=== PATIENT | male | born 1965 | race Caucasian/White ===

== ENCOUNTER 2016-12-06 11:08 | Inpatient (IN) | payer OTHER ==
[2016-12-06 12:58] VITALS: BMI 23.1
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
[2016-12-06] MEDS ORDERED: chlordiazePOXIDE HCL 25 MG CAPSULE PO PRN (15:13)
[2016-12-06] MEDS ORDERED: MAG HYDROX/AL HYDROX/SIMETH 30 ML UNIT-DOSE CUP PO PRN (15:13)
[2016-12-06] MEDS ORDERED: ACETAMINOPHEN 325 MG TABLET (FP) PO PRN (15:13)
[2016-12-06] MEDS ORDERED: MAGNESIUM CITRATE 300 ML BOTTLE PO PRN (15:13)
[2016-12-06] MEDS ORDERED: guaiFENesin/D-METHORPHAN HB 10 ML UNIT-DOSE CUPS PO PRN (15:13)
[2016-12-06] MEDS ORDERED: NICOTINE POLACRILEX 4 MG GUM BUC PRN (15:13)
[2016-12-06] MEDS ORDERED: IBUPROFEN 400 MG TABLET (FP) PO PRN (15:13)
[2016-12-06] MEDS ORDERED: P-EPHED 60MG/TRIPROLIDI 2.5MG TABLET PO PRN (15:13)
[2016-12-06] MEDS ORDERED: MENTHOL/PHENOL 1 EACH UD MM PRN (15:13)
[2016-12-06] MEDS ORDERED: MAGNESIUM HYDROX 2400MG/30ML ORAL SUSPENSION 30 ML CUP PO PRN (15:13)
[2016-12-06] MEDS ORDERED: LOPERAMIDE HCL 2 MG CAPSULE PO PRN (15:13)
[2016-12-06] MEDS ORDERED: diphenhydrAMINE HCL 50 MG CAPSULE PO PRN (15:13)
[2016-12-06] MEDS ORDERED: hydrOXYzine PAMOATE 50 MG CAPSULE (FP) PO PRN (15:13)
[2016-12-06] MEDS ORDERED: ALBUTEROL SO4 6.7 GM HFA INHALER IH PRN (15:16)
[2016-12-06] MEDS ORDERED: chlordiazePOXIDE HCL 25 MG CAPSULE PO ONE (15:19)
[2016-12-06] MEDS ORDERED: METHADONE HCL 10 MG TABLET (FOR DETOX USE ONLY) PO ONE ×2 (15:21→23:00)
[2016-12-06] MEDS: chlordiazePOXIDE HCL 25 MG CAPSULE PO SCH ×2 (17:23→22:43)
[2016-12-06 20:39] LABS: URINE APPEARANCE CLEAR; URINE BILIRUBIN NEGATIVE (NEGATIVE); URINE BLOOD NEGATIVE (NEGATIVE); URINE COLOR YELLOW; URINE GLUCOSE (UA) NEGATIVE (NEGATIVE); URINE KETONE TRACE (NEGATIVE); URINE LEUK ESTERASE NEGATIVE (NEGATIVE); URINE NITRITE NEGATIVE (NEGATIVE); URINE PROTEIN NEGATIVE (NEGATIVE); URINE UROBILINOGEN 2.0 E.U/dl E.U./dl (0.2-1.0)
[2016-12-06] MEDS: THIAMINE HCL 100 MG TABLET (FP) PO SCH (22:43)
[2016-12-07] MEDS: chlordiazePOXIDE HCL 25 MG CAPSULE PO SCH ×2 (06:23→10:53)
[2016-12-07] MEDS ORDERED: METHADONE HCL 10 MG TABLET (FOR DETOX USE ONLY) PO SCH (10:00)
[2016-12-07 10:25] LABS: MCH 29.1 pg (25.7-33.7); MCHC 32.3 g/dl (32.0-35.9); MEAN PLT VOLUME 11.9 fl (7.5-11.1); PLATELET COUNT 117 K/MM3 (134-434); RDW 14.1 % (11.9-15.9); WHITE BLOOD COUNT 5.9 K/mm3 (4.0-10.0)
--- NOTE | 2016-12-07 10:44 | PN ---
[facility] CIWA - CIWA Score Nausea/Vomitin Muscle Tremors: 3 Anxiety: 3 Agitation: 2 Paroxysmal Sweats: 1-Minimal Palms Moist Orientation: 0-Oriented Tacttile Disturbances: 1-Very Mild Itch/Numbness Auditory Disturbances: 1-Very Mild Visual Disturbances: 1-Very Mild Sensitivity Headache: 2-Mild CIWA-Ar Total Score: 17 [facility] COWS - Scale Resting Pulse: 0= [place] 80 or Below Sweatin= Chills/Flushing Restless Observation: 3= Extraneous Movement Pupil Size: 1= Pupils >than Normal Bone or Joint Aches: 2= Severe Diffuse Aches Runny Nose/ Eye Tearin= Runny Nose/Eyes GI Upset > 30mins: 3= Vomiting/Diarrhea Tremor Observation of Outstretched Hands: 2= Slight Tremor Visible Yawning Observation: 1= 1-2x During Session Anxiety or Irritability: 2=Irritable/Anxious Goose Flesh Skin: 0=Smooth Skin COWS Score: 17 [facility] Progress Note (SOAP) Subjective: ALERT,IRRITABLE,ANXIOUS,INTERRUPTED SLEEP,PAIN IN THE BODY AND BACK Objective: 12/07/16 10:41 Vital Signs Temperature 98.1 F 12/07/16 09:40 Pulse Rate 67 12/07/16 09:40 Respiratory Rate 16 12/07/16 09:40 Blood Pressure 109/71 12/07/16 09:40 O2 Sat by Pulse Oximetry (%) EKG SINUS TACHYCARDIA 112/MIN NO CHEST PAIN,NO SOB,NO DIZZINESS Laboratory Last Values WBC 5.9 K/mm3 (4.0-10.0) 12/07/16 06:00 RBC 4.74 M/mm3 (4.00-5.60) 12/07/16 06:00 Hgb 13.8 GM/dL (11.7-16.9) 12/07/16 06:00 Hct 42.7 % (35.4-49) 12/07/16 06:00 MCV 90.0 fl (80-96) 12/07/16 06:00 MCHC 32.3 g/dl (32.0-35.9) 12/07/16 06:00 RDW 14.1 % (11.9-15.9) 12/07/16 06:00 Plt Count 117 K/MM3 (134-434) L 12/07/16 06:00 MPV 11.9 fl (7.5-11.1) H D 12/07/16 06:00 Urine Color Yellow 12/06/16 20:07 Urine Appearance Clear 12/06/16 20:07 Urine pH 6.0 (5.0-8.0) 12/06/16 20:07 Ur Specific [place] 1.025 (1.005-1.025) 12/06/16 20:07 Urine Protein Negative (NEGATIVE) 12/06/16 20:07 Urine Glucose (UA) Negative (NEGATIVE) 12/06/16 20:07 Urine Ketones Trace (NEGATIVE) H 12/06/16 20:07 Urine Blood Negative (NEGATIVE) 12/06/16 20:07 Urine Nitrite Negative (NEGATIVE) 12/06/16 20:07 Urine Bilirubin Negative (NEGATIVE) 12/06/16 20:07 Urine Urobilinogen 2.0 e.u/dl E.U./dl (0.2-1.0) 12/06/16 20:07 Ur Leukocyte Esterase Negative (NEGATIVE) 12/06/16 20:07 LABS PENDING 12/07/16 10:44 Assessment: 12/07/16 10:43 WITHDRAWAL SYMPTOM 12/07/16 10:44 NO CHEST PAIN,NO SOB,NO DIZZINESS Plan: CONTINUE DETOX
[2016-12-07 10:53] LABS: ALBUMIN 4.2 g/dl (3.4-5.0); ALK PHOS 96 U/L (45-117); ANION GAP 10 (8-16); BILIRUBIN,TOTAL 0.6 mg/dL (0.2-1.0); CALCIUM 8.9 mg/dL (8.5-10.1); CO2 31 mmol/L (21-32); COCKROFT - GAULT 94.61; CREATININE 0.8 mg/dL (0.7-1.3); GLUCOSE,RANDOM 88 mg/dL (74-106); SGOT/AST 32 U/L (15-37); SGPT/ALT 27 U/L (12-78); TOT PROT 7.9 g/dl (6.4-8.2)
[2016-12-07] MEDS: PRENATAL VITAMINS W/ FOLIC ACID TABLET (FP) PO SCH (10:53)
[2016-12-07] MEDS: NICOTINE 21 MG/24 HOURS TOPICAL PATCH TD SCH (10:55)
--- NOTE | 2016-12-07 11:06 | PN ---
[facility] Progress Note Note: ADDENDUM EKG SHOWED NSR
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
[2016-12-07] MEDS ORDERED: diazePAM 5 MG TABLET PO ONE (15:21)
[2016-12-07] MEDS ORDERED: BACITRACIN 0.9 GM PACKET ONE (15:33)
[2016-12-07] MEDS ORDERED: chlordiazePOXIDE HCL 25 MG CAPSULE PO SCH (17:00)
--- NOTE | 2016-12-07 17:21 | EKG ---
Test Reason : Blood Pressure : / mmHG Vent. Rate : 083 BPM Atrial Rate : 083 BPM P-R Int : 142 ms QRS Dur : 092 ms QT Int : 358 ms P-R-T Axes : 077 095 064 degrees QTc Int : 420 ms NORMAL SINUS RHYTHM RIGHTWARD AXIS BORDERLINE ECG NO PREVIOUS ECGS AVAILABLE Confirmed by NELLY ORDONEZ, GEORGES ([id number]) on 12/07/2016 5:20:54 PM Referred By: Confirmed By:GEORGES VILLEGAS MD
[2016-12-07] MEDS: CEPHALEXIN MONOHYDRATE 500 MG CAPSULE (UD) PO SCH ×2 (17:30→23:04)
--- NOTE | 2016-12-07 17:43 | CONSULT ---
[facility] Psychiatric Consult - Data Date of interview: 12/07/16 Admission source: [facility] Identifying data: Readmission to [facility] for this 51 y/o male seeking detox treatment on for alcohol,heroin and cocaine dependence.Patient is single,a father of three,homeless,unemployed and reportedly deprived of any source of income. Substance Abuse History: - Smoking Cessation. Smoking history: Current every day smoker. Have you smoked in the past 12 months: Yes. Aproximately how many cigarettes per day: 20. Cigars Per Day: 0. Hx Chewing Tobacco Use: No. Initiated information on smoking cessation: Yes. 'Breaking Loose' booklet given : 12/06/16. - Substance & Tx. History. Hx Alcohol Use: Yes. Hx Substance Use : Yes. Substance Use Type: Alcohol, Cocaine, Heroin. Hx Substance Use Treatment: Yes. - Substances Abused. Heroin. Route: Injection. Frequency : Daily. Amount used: 8 bags. Age of first use: 18. Date of Last Use: . Cocaine. Route: Injection. Frequency: 1-2 times per week. Amount used : $100. Age of first use: 18. Date of Last Use: 12/05/16. Alcohol-vodka/ beer. Route: Oral. Frequency: Daily. Amount used: 2-3 pts./2 (14 oz.). Age of first use: 14. Date of Last Use: 12/06/16. Confirmed by patient. Medical History: Hepatitis C,bronchial asthma and a remote history of withdrawal seizure.Cyst in the occipital region. Psychiatric History: Patient admits to one psychiatric hospitalization at [facility] in 1989.Diagnosed with Bipolar Disorder.Used to be followed at [facility] in the [place].Lost to follow up for several months.Not on psychotropic medications.Mr Zuleta denies history of suicide attempts. Physical/Sexual Abuse/Trauma History: Patient denies. Additional Comment: Urine Drug Screen Results: CHARLES-Cocaine, OPI-Opiates, BZO- Benzodiazepines, OXY-Oxycodone.Noted. Mental Status Exam - Mental Status Exam Alert and Oriented to: Time, Place, Person Cognitive Function: Good Patient Appearance: Well Groomed Mood: Hopeful, Euthymic Affect: Appropriate, Normal Range Patient Behavior: Fatigued, Appropriate, Cooperative Speech Pattern: Clear, Appropriate Voice Loudness: Normal Thought Process: Goal Oriented Thought Disorder: Not Present Hallucinations: Denies Suicidal Ideation: Denies Homicidal Ideation: Denies Insight/Judgement: Poor Sleep: Well Appetite: Good Muscle strength/Tone: Normal Gait/Station: Normal Psychiatric Findings - Problem List ([place] 1, 2,3) (1) Alcohol dependence with uncomplicated withdrawal Current Visit: Yes Status: Acute (2) Opioid dependence with withdrawal Current Visit: Yes Status: Acute (3) Cocaine dependence Current Visit: Yes Status: Acute (4) Nicotine dependence Current Visit: Yes Status: Acute Qualifiers: Nicotine product type: cigarettes Substance use status: in withdrawal Qualified Code(s): F17.213 - Nicotine dependence, cigarettes, with withdrawal (5) Substance induced mood disorder Current Visit: Yes Status: Acute (6) COPD (chronic obstructive pulmonary disease) Current Visit: Yes Status: Chronic Qualifiers: COPD type: emphysema Emphysema type: other Qualified Code(s): J43.8 - Other emphysema (7) Asthma Current Visit: Yes Status: Chronic - Initial Treatment Plan Initial Treatment Plan: Psychoeducation.Detoxification.Observation.
[2016-12-07] MEDS: THIAMINE HCL 100 MG TABLET (FP) PO SCH (22:55)
[2016-12-07] MEDS: diazePAM 5 MG TABLET PO SCH (22:56)
[2016-12-07] MEDS: BACITRACIN 0.9 GM PACKET TP SCH ×2 (22:57→23:12)
[2016-12-08] MEDS: CEPHALEXIN MONOHYDRATE 500 MG CAPSULE (UD) PO SCH ×4 (05:18→23:48)
[2016-12-08] MEDS: diazePAM 5 MG TABLET PO SCH ×3 (05:18→22:23)
[2016-12-08] MEDS: BACITRACIN 0.9 GM PACKET TP SCH ×2 (10:20→23:28)
[2016-12-08] MEDS: PRENATAL VITAMINS W/ FOLIC ACID TABLET (FP) PO SCH (10:21)
[2016-12-08] MEDS: NICOTINE 21 MG/24 HOURS TOPICAL PATCH TD SCH (10:21)
[2016-12-08] MEDS: METHADONE HCL 5 MG TABLET (FOR DETOX USE ONLY) PO SCH (10:21)
--- NOTE | 2016-12-08 10:56 | PN ---
[facility] CIWA - CIWA Score Nausea/Vomitin-No Nausea/No Vomiting Muscle Tremors: 4-Moderate,w/Arms Extend Anxiety: 3 Agitation: 4-Moderately Restless Paroxysmal Sweats: 3 Orientation: 0-Oriented Tacttile Disturbances: 0-None Auditory Disturbances: 0-None Visual Disturbances: 0-None Headache: 1-Very Mild CIWA-Ar Total Score: 15 [facility] COWS - Scale Resting Pulse: 0= [place] 80 or Below Sweatin=Flushed/Facial Moisture Restless Observation: 1= Difficult to Sit Still Pupil Size: 0= Normal to Room Light Bone or Joint Aches: 2= Severe Diffuse Aches Runny Nose/ Eye Tearin= Runny Nose/Eyes GI Upset > 30mins: 1= Stomach Cramp Tremor Observation of Outstretched Hands: 2= Slight Tremor Visible Yawning Observation: 2= >3x During Session Anxiety or Irritability: 2=Irritable/Anxious Goose Flesh Skin: 0=Smooth Skin COWS Score: 14 S Progress Note (SOAP) Subjective: sweats shakes interrupted sleep some drainage Objective: 12/08/16 10:53 Vital Signs Temperature 98.1 F 12/08/16 09:37 Pulse Rate 74 12/08/16 09:37 Respiratory Rate 16 12/08/16 09:37 Blood Pressure 102/59 12/08/16 09:37 O2 Sat by Pulse Oximetry (%) Laboratory Tests 12/06/16 12/07/16 12/07/16 20:07 06:00 06:00 WBC 5.9 RBC 4.74 Hgb 13.8 Hct 42.7 MCV 90.0 MCHC 32.3 RDW 14.1 Plt Count 117 L MPV 11.9 H D Sodium 140 Potassium 4.9 Chloride 99 Carbon Dioxide 31 Anion Gap 10 BUN 9 Creatinine 0.8 Creat Clearance w eGFR > 60 Random Glucose 88 Calcium 8.9 Total Bilirubin 0.6 AST 32 D ALT 27 D Alkaline Phosphatase 96 Total Protein 7.9 Albumin 4.2 Urine Color Yellow Urine Appearance Clear Urine pH 6.0 Ur Specific [place] 1.025 Urine Protein Negative Urine Glucose (UA) Negative Urine Ketones Trace H Urine Blood Negative Urine Nitrite Negative Urine Bilirubin Negative Urine Urobilinogen 2.0 e.u/dl Ur Leukocyte Esterase Negative RPR Titer 12/07/16 06:00 WBC RBC Hgb Hct MCV MCHC RDW Plt Count MPV Sodium Potassium Chloride Carbon Dioxide Anion Gap BUN Creatinine Creat Clearance w eGFR Random Glucose Calcium Total Bilirubin AST ALT Alkaline Phosphatase Total Protein Albumin Urine Color Urine Appearance Urine pH Ur Specific [place] Urine Protein Urine Glucose (UA) Urine Ketones Urine Blood Urine Nitrite Urine Bilirubin Urine Urobilinogen Ur Leukocyte Esterase RPR Titer Nonreactive awake/alert ambulating no acute distress Assessment: 12/08/16 10:54 withdrawal sx Plan: continue detox increase fluids
[2016-12-08] MEDS ORDERED: chlordiazePOXIDE 5 MG CAPSULE PO SCH (17:00)
[2016-12-08] MEDS: diazePAM 5 MG TABLET PO PRN (17:54)
[2016-12-08] MEDS: THIAMINE HCL 100 MG TABLET (FP) PO SCH (22:23)
[2016-12-09] MEDS: CEPHALEXIN MONOHYDRATE 500 MG CAPSULE (UD) PO SCH ×4 (07:31→23:04)
[2016-12-09] MEDS: BACITRACIN 0.9 GM PACKET TP SCH ×2 (10:31→23:02)
[2016-12-09] MEDS: METHADONE HCL 5 MG TABLET (FOR DETOX USE ONLY) PO SCH (10:32)
[2016-12-09] MEDS: NICOTINE 21 MG/24 HOURS TOPICAL PATCH TD SCH (10:32)
[2016-12-09] MEDS: diazePAM 5 MG TABLET PO SCH ×2 (10:32→22:41)
[2016-12-09] MEDS: PRENATAL VITAMINS W/ FOLIC ACID TABLET (FP) PO SCH (10:32)
--- NOTE | 2016-12-09 10:37 | PN ---
[facility] Progress Note (SOAP) Subjective: ALERT,IRRITABLE,ANXIOUS,INTERRUPTED SLEEP,PAIN IN THE BODY Objective: 12/09/16 10:36 Vital Signs Temperature 98.1 F 12/09/16 09:22 Pulse Rate 63 12/09/16 09:22 Respiratory Rate 16 12/09/16 09:22 Blood Pressure 98/60 12/09/16 09:22 O2 Sat by Pulse Oximetry (%) Assessment: 12/09/16 10:36 WITHDRAWAL SYMPTOM Plan: CONTINUE DETOX
[2016-12-09] MEDS: diazePAM 5 MG TABLET PO PRN ×2 (12:27→17:16)
[2016-12-09] MEDS ORDERED: chlordiazePOXIDE HCL 10 MG CAPSULE PO SCH (17:00)
[2016-12-09] MEDS: THIAMINE HCL 100 MG TABLET (FP) PO SCH (22:41)
[2016-12-10] MEDS: CEPHALEXIN MONOHYDRATE 500 MG CAPSULE (UD) PO SCH ×2 (05:37→13:00)
--- NOTE | 2016-12-10 09:01 | PN ---
S Progress Note (SOAP) Subjective: ALERT,INTERRUPTED SLEEP Objective: 12/10/16 08:57 Vital Signs Temperature 97.7 F 12/10/16 06:00 Pulse Rate 56 L 12/10/16 06:00 Respiratory Rate 18 12/10/16 06:00 Blood Pressure 90/61 12/10/16 06:00 O2 Sat by Pulse Oximetry (%) Assessment: 12/10/16 08:57 WITHDRAWAL SYMPTOM Plan: CONTINUE DETOX,DISCHARGE IN AM
[2016-12-10] MEDS ORDERED: METHADONE HCL 10 MG TABLET (FOR DETOX USE ONLY) PO SCH (10:00)
[2016-12-10] MEDS: BACITRACIN 0.9 GM PACKET TP SCH (10:05)
[2016-12-10] MEDS: PRENATAL VITAMINS W/ FOLIC ACID TABLET (FP) PO SCH (10:05)
[2016-12-10] MEDS: NICOTINE 21 MG/24 HOURS TOPICAL PATCH TD SCH (10:06)
[2016-12-10] MEDS: diazePAM 5 MG TABLET PO SCH (10:06)
[2016-12-10] MEDS: diazePAM 5 MG TABLET PO PRN (13:38)
[2016-12-10 14:30] VITALS: BP 108/67; PULSE 65; TEMP 97.7
--- NOTE | 2016-12-10 16:49 | DS ---
[facility] Detox Discharge Summary Admission Date: 12/06/16 Discharge Date: 12/10/16 - History Present History: Alcohol Dependence, Cocaine Dependence, Opioid Dependence - Physical Exam Results Vital Signs: Vital Signs Temperature 97.7 F 12/10/16 14:30 Pulse Rate 65 12/10/16 14:30 Respiratory Rate 16 12/10/16 14:30 Blood Pressure 108/67 12/10/16 14:30 O2 Sat by Pulse Oximetry (%) - Medication Discharge Medications: Ambulatory Orders Albuterol Sulfate Inhaler - [Ventolin HFA Inhaler -] 2 inh IH Q4H PRN #0 inh Salmeterol/Fluticasone [Advair 250Mcg/50Mcg] 1 inh PO BID 12/06/16 - Diagnosis (1) Cocaine dependence Current Visit: Yes Status: Chronic (2) Alcohol dependence with uncomplicated withdrawal Current Visit: Yes Status: Chronic (3) Nicotine dependence Current Visit: Yes Status: Chronic Qualifiers: Nicotine product type: cigarettes Substance use status: uncomplicated Qualified Code(s): F17.210 - Nicotine dependence, cigarettes, uncomplicated (4) Opioid dependence with withdrawal Current Visit: Yes Status: Chronic (5) Weight loss Current Visit: Yes Status: Chronic (6) Asthma Current Visit: Yes Status: Chronic - AMA Did Patient Leave Against Medical Advice: Yes
[2016-12-11] MEDS ORDERED: METHADONE HCL 5 MG TABLET (FOR DETOX USE ONLY) PO SCH (06:00)
[2016-12-11] MEDS ORDERED: diazePAM 5 MG TABLET PO SCH (10:00)
== END 2016-12-10 16:50 | disposition left against medical advice (07) | DRG 770 ==
LOC: YASAS 11:08 → Y6N 15:15
PROVIDERS: ADMIT Internal Medicine Addiction Medicine; ATTEND Internal Medicine Addiction Medicine
PROC: HZ2ZZZZ Detoxification Services for Substance Abuse Treatment (ICD-10-PCS; principal; 2016-12-10)
DX: F11.23 Opioid dependence with withdrawal (principal); F10.230 Alcohol dependence with withdrawal, uncomplicated; F14.20 Cocaine dependence, uncomplicated; F17.210 Nicotine dependence, cigarettes, uncomplicated; F19.24 Other psychoactive substance dependence with psychoactive substance-induced mood disorder; J45.909 Unspecified asthma, uncomplicated; J43.8 Other emphysema; R63.4 Abnormal weight loss; Z68.22 Body mass index [BMI] 22.0-22.9, adult; Z59.0 Homelessness
CPT/HCPCS: 36415; 80053; 81003; 85027; 86593; 93005; 93010

== ENCOUNTER 2017-01-12 12:56 | Inpatient (IN) | payer OTHER ==
[2017-01-12 15:03] VITALS: BMI 22.8
[2017-01-12] MEDS ORDERED: MAGNESIUM CITRATE 300 ML BOTTLE PO PRN (19:10)
[2017-01-12] MEDS ORDERED: LOPERAMIDE HCL 2 MG CAPSULE PO PRN (19:10)
[2017-01-12] MEDS ORDERED: MAG HYDROX/AL HYDROX/SIMETH 30 ML UNIT-DOSE CUP PO PRN (19:10)
[2017-01-12] MEDS ORDERED: NICOTINE POLACRILEX 4 MG GUM BC PRN (19:10)
[2017-01-12] MEDS ORDERED: diphenhydrAMINE HCL 50 MG CAPSULE PO PRN (19:10)
[2017-01-12] MEDS ORDERED: guaiFENesin/D-METHORPHAN HB 10 ML UNIT-DOSE CUPS PO PRN (19:10)
[2017-01-12] MEDS ORDERED: P-EPHED 60MG/TRIPROLIDI 2.5MG TABLET PO PRN (19:10)
[2017-01-12] MEDS ORDERED: MENTHOL/PHENOL 1 EACH UD MM PRN (19:10)
[2017-01-12] MEDS ORDERED: MAGNESIUM HYDROX 2400MG/30ML ORAL SUSPENSION 30 ML CUP PO PRN (19:10)
[2017-01-12] MEDS ORDERED: METHADONE HCL 10 MG TABLET (FOR DETOX USE ONLY) PO ONE ×2 (19:10→23:00)
[2017-01-12] MEDS ORDERED: ACETAMINOPHEN 325 MG TABLET (FP) PO PRN (19:10)
[2017-01-12] MEDS ORDERED: diazePAM 5 MG TABLET PO ONE (19:10)
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
[2017-01-12] MEDS ORDERED: ALBUTEROL SO4 6.7 GM HFA INHALER IH PRN (19:13)
[2017-01-12] MEDS ORDERED: BACITRACIN 0.9 GM PACKET TP ONE (19:16)
[2017-01-12] MEDS: RANITIDINE HCL 150 MG TABLET (FP) PO SCH (22:38)
[2017-01-12] MEDS: diazePAM 5 MG TABLET PO SCH (22:38)
[2017-01-12] MEDS: BUDESONIDE/FORMETEROL FUMARATE 80/4.5 mcg INHALER IH SCH (22:38)
[2017-01-12] MEDS: THIAMINE HCL 100 MG TABLET (FP) PO SCH (22:38)
[2017-01-13 02:37] LABS: URINE APPEARANCE TURBID; URINE BILIRUBIN NEGATIVE (NEGATIVE); URINE BLOOD NEGATIVE (NEGATIVE); URINE COLOR YELLOW; URINE GLUCOSE (UA) NEGATIVE (NEGATIVE); URINE KETONE NEGATIVE (NEGATIVE); URINE LEUK ESTERASE NEGATIVE (NEGATIVE); URINE NITRITE NEGATIVE (NEGATIVE); URINE UROBILINOGEN 2.0 E.U/dl E.U./dl (0.2-1.0)
[2017-01-13 02:40] LABS: URINE PROTEIN 1+ (NEGATIVE)
[2017-01-13 02:49] LABS: URINE BACTERIA FEW /hpf (NONE SEEN); URINE HYALINE CAST 7 /lpf; URINE MUCUS MANY; URINE RBC 3 /hpf (0-3)
[2017-01-13] MEDS: diazePAM 5 MG TABLET PO SCH ×3 (05:43→22:42)
[2017-01-13] MEDS ORDERED: METHADONE HCL 10 MG TABLET (FOR DETOX USE ONLY) PO SCH (10:00)
[2017-01-13 10:12] LABS: MCHC 32.7 g/dl (32.0-35.9); MEAN CELL VOLUME 88.7 fl (80-96); MEAN PLT VOLUME 10.1 fl (7.5-11.1); PLATELET COUNT 114 K/MM3 (134-434); WHITE BLOOD COUNT 4.3 K/mm3 (4.0-10.0)
[2017-01-13] MEDS: BUDESONIDE/FORMETEROL FUMARATE 80/4.5 mcg INHALER IH SCH ×2 (10:45→22:42)
[2017-01-13] MEDS: PRENATAL VITAMINS W/ FOLIC ACID TABLET (FP) PO SCH (10:45)
[2017-01-13] MEDS: RANITIDINE HCL 150 MG TABLET (FP) PO SCH ×2 (10:45→22:42)
[2017-01-13] MEDS: NICOTINE 21 MG/24 HOURS TOPICAL PATCH TD SCH (10:45)
[2017-01-13 10:46] LABS: ALBUMIN 3.6 g/dl (3.4-5.0); ANION GAP 8 (8-16); BILIRUBIN,TOTAL 0.7 mg/dL (0.2-1.0); CALCIUM 9.2 mg/dL (8.5-10.1); CO2 32 mmol/L (21-32); CREATININE 0.8 mg/dL (0.7-1.3); GLUCOSE,RANDOM 83 mg/dL (74-106); SGOT/AST 47 U/L (15-37); SGPT/ALT 38 U/L (12-78)
[2017-01-13 10:47] LABS: ALK PHOS 84 U/L (45-117)
[2017-01-13] MEDS ORDERED: ONDANSETRON *ODT* 4 MG TABLET SL PRN (13:23)
--- NOTE | 2017-01-13 13:23 | PN ---
[facility] CIWA - CIWA Score Nausea/Vomitin-No Nausea/No Vomiting Muscle Tremors: 4-Moderate,w/Arms Extend Anxiety: 4-Mod. Anxious/Guarded Agitation: 4-Moderately Restless Paroxysmal Sweats: 1-Minimal Palms Moist Orientation: 0-Oriented Tacttile Disturbances: 3-Moderate Itch/Numb/Burn Auditory Disturbances: 3-Moderate Harsh/Frighten Visual Disturbances: 0-None Headache: 0-None Present CIWA-Ar Total Score: 19 S COWS - Scale Resting Pulse: 0= [place] 80 or Below Sweatin= Chills/Flushing Restless Observation: 3= Extraneous Movement Pupil Size: 2= Moderately Dilated Bone or Joint Aches: 4=Acute Joint/Muscle Pain Runny Nose/ Eye Tearin= Nasal Congestion GI Upset > 30mins: 1= Stomach Cramp Tremor Observation of Outstretched Hands: 1= Tremor [place], Not Seen Yawning Observation: 1= 1-2x During Session Anxiety or Irritability: 2=Irritable/Anxious Goose Flesh Skin: 0=Smooth Skin COWS Score: 16 S Progress Note (SOAP) Subjective: ANXIETY,SWEATS/CHILLS,NAUSEA, FATIGUE,INTERMITTENT SLEEP. Objective: 01/13/17 13:22 Vital Signs Temperature 96.7 F L 01/13/17 10:34 Pulse Rate 72 01/13/17 10:34 Respiratory Rate 18 01/13/17 10:34 Blood Pressure 110/75 01/13/17 10:34 O2 Sat by Pulse Oximetry (%) Laboratory Last Values WBC 4.3 K/mm3 (4.0-10.0) 01/13/17 07:00 RBC 4.84 M/mm3 (4.00-5.60) 01/13/17 07:00 Hgb 14.1 GM/dL (11.7-16.9) 01/13/17 07:00 Hct 43.0 % (35.4-49) 01/13/17 07:00 MCV 88.7 fl (80-96) 01/13/17 07:00 MCHC 32.7 g/dl (32.0-35.9) 01/13/17 07:00 RDW 14.0 % (11.9-15.9) 01/13/17 07:00 Plt Count 114 K/MM3 (134-434) L 01/13/17 07:00 MPV 10.1 fl (7.5-11.1) D 01/13/17 07:00 Sodium 141 mmol/L (136-145) 01/13/17 07:00 Potassium 4.0 mmol/L (3.5-5.1) 01/13/17 07:00 Chloride 101 mmol/L (98-107) 01/13/17 07:00 Carbon Dioxide 32 mmol/L (21-32) 01/13/17 07:00 Anion Gap 8 (8-16) 01/13/17 07:00 BUN 7 mg/dL (7-18) D 01/13/17 07:00 Creatinine 0.8 mg/dL (0.7-1.3) 01/13/17 07:00 Creat Clearance w eGFR > 60 (>60) 01/13/17 07:00 Random Glucose 83 mg/dL (74-106) 01/13/17 07:00 Calcium 9.2 mg/dL (8.5-10.1) 01/13/17 07:00 Total Bilirubin 0.7 mg/dL (0.2-1.0) 01/13/17 07:00 AST 47 U/L (15-37) H D 01/13/17 07:00 ALT 38 U/L (12-78) D 01/13/17 07:00 Alkaline Phosphatase 84 U/L (45-117) 01/13/17 07:00 Total Protein 7.0 g/dl (6.4-8.2) 01/13/17 07:00 Albumin 3.6 g/dl (3.4-5.0) 01/13/17 07:00 Urine Color Yellow 01/13/17 00:14 Urine Appearance Turbid 01/13/17 00:14 Urine pH 5.0 (5.0-8.0) 01/13/17 00:14 Ur Specific [place] >= 1.030 (1.005-1.025) H 01/13/17 00:14 Urine Protein 1+ (NEGATIVE) H 01/13/17 00:14 Urine Glucose (UA) Negative (NEGATIVE) 01/13/17 00:14 Urine Ketones Negative (NEGATIVE) 01/13/17 00:14 Urine Blood Negative (NEGATIVE) 01/13/17 00:14 Urine Nitrite Negative (NEGATIVE) 01/13/17 00:14 Urine Bilirubin Negative (NEGATIVE) 01/13/17 00:14 Urine Urobilinogen 2.0 e.u/dl E.U./dl (0.2-1.0) 01/13/17 00:14 Ur Leukocyte Esterase Negative (NEGATIVE) 01/13/17 00:14 Urine RBC 3 /hpf (0-3) 01/13/17 00:14 Urine WBC None /hpf (3-5) 01/13/17 00:14 Urine Bacteria Few /hpf (NONE SEEN) 01/13/17 00:14 Hyaline Casts 7 /lpf 01/13/17 00:14 Urine Mucus Many 01/13/17 00:14 RPR Titer Nonreactive (NONREACTIVE) 01/13/17 07:00 Assessment: 01/13/17 13:22 WITHDRAWAL SX Plan: CONTINUE DETOX
--- NOTE | 2017-01-13 14:09 | CONSULT ---
[facility] Psychiatric Consult - Data Date of interview: 01/13/17 Admission source: [facility] Identifying data: This is 51 years old male with psychiatric hospitalization history, history of Bipolar disorder, intoxicated with: Alcohol, Opioids, Xanax , Cannabis, Cocaine, Nicotine Substance Abuse History: - Smoking Cessation. Smoking history: Current every day smoker. Have you smoked in the past 12 months: Yes. Aproximately how many cigarettes per day: 20. Cigars Per Day: 0. Hx Chewing Tobacco Use: No. Initiated information on smoking cessation: Yes. 'Breaking Loose' booklet given : 01/12/17. - Substance & Tx. History. Hx Alcohol Use: Yes. Hx Substance Use : Yes. Substance Use Type: Alcohol, Cocaine, Heroin, Opiates, Tranquilizers. Hx Substance Use Treatment: Yes (12/06-12/10/16 [place]). - Substances Abused. * * Heroin. Route: Injection. Frequency: Daily. Amount used: 8 BAGS. Age of first use: 18. Date of Last Use: 01/12/17. Alcohol. Route: Oral. Frequency: Daily. Amount used: 3 PINTS VODKA OR 4 24OZ BEERS. Age of first use : 14. Date of Last Use: 01/12/17. Cocaine. Route: Injection. Frequency: 1 -2 times per week. Amount used: $20. Age of first use: 18. Date of Last Use: 01/10/17. Alprazolam (Xanax). Route: Oral. Frequency: Daily. Amount used : 2MG. Age of first use: 30. Date of Last Use: 01/11/17 Medical History: HepC+, COPD, GERD, Psychiatric History: Patient reports long history of Bipolar disorder with most recent psychiatric admission on more then 10 years ago, reports no medications taking prior to admission Physical/Sexual Abuse/Trauma History: Denies Additional Comment: Observation. Detox Unit Care Protocol Mental Status Exam - Mental Status Exam Alert and Oriented to: Person Cognitive Function: Fair Patient Appearance: Unkempt Mood: Sad Affect: Mood Congruent Patient Behavior: Cooperative Speech Pattern: Appropriate Voice Loudness: Mildly Soft/Quiet Thought Process: Circumstantial Thought Disorder: Being Controlled Hallucinations: Denies Suicidal Ideation: Denies Homicidal Ideation: Denies Insight/Judgement: Fair Sleep: Difficulty falling asleep Appetite: Fair Muscle strength/Tone: Normal Gait/Station: Normal Additional Comments: Observation. Detox Unit Care Protocol Psychiatric Findings - Problem List ([place] 1, 2,3) (1) Alcohol dependence with uncomplicated withdrawal Current Visit: Yes Status: Acute (2) Nicotine dependence Current Visit: Yes Status: Acute Qualifiers: Nicotine product type: cigarettes Substance use status: in withdrawal Qualified Code(s): F17.213 - Nicotine dependence, cigarettes, with withdrawal (3) Opioid dependence with withdrawal Current Visit: Yes Status: Acute (4) Sedative, hypnotic or anxiolytic dependence with withdrawal, uncomplicated Current Visit: Yes Status: Acute (5) Asthma Current Visit: Yes Status: Chronic (6) Bipolar II disorder Current Visit: Yes Status: Suspected (7) Opioid abuse Current Visit: No Status: Active (8) Opioid dependence Current Visit: No Status: Active (9) Substance induced mood disorder Current Visit: No Status: Acute (10) Cannabis dependence, uncomplicated Current Visit: No Status: Chronic (11) Cocaine dependence Current Visit: No Status: Chronic - Initial Treatment Plan Initial Treatment Plan: Observation. Detox Unit Care Protocol
--- NOTE | 2017-01-13 15:50 | EKG ---
Test Reason : Blood Pressure : / mmHG Vent. Rate : 062 BPM Atrial Rate : 062 BPM P-R Int : 152 ms QRS Dur : 104 ms QT Int : 394 ms P-R-T Axes : 081 095 068 degrees QTc Int : 399 ms NORMAL SINUS RHYTHM POSSIBLE LEFT ATRIAL ENLARGEMENT RIGHTWARD AXIS PULMONARY DISEASE PATTERN ABNORMAL ECG WHEN COMPARED WITH ECG OF 06-DEC-2016 16:40, NO SIGNIFICANT CHANGE WAS FOUND Confirmed by FRANKIE ORDONEZ, TONJA ([id number]) on 01/13/2017 3:50:24 PM Referred By: Confirmed By:TONJA DAVID MD
[2017-01-13] MEDS: THIAMINE HCL 100 MG TABLET (FP) PO SCH (22:42)
[2017-01-14] MEDS: diazePAM 5 MG TABLET PO PRN ×2 (05:40→13:28)
[2017-01-14] MEDS: BUDESONIDE/FORMETEROL FUMARATE 80/4.5 mcg INHALER IH SCH ×2 (10:41→22:30)
[2017-01-14] MEDS: METHADONE HCL 5 MG TABLET (FOR DETOX USE ONLY) PO SCH (10:42)
[2017-01-14] MEDS: NICOTINE 21 MG/24 HOURS TOPICAL PATCH TD SCH (10:42)
[2017-01-14] MEDS: diazePAM 5 MG TABLET PO SCH ×2 (10:42→22:30)
[2017-01-14] MEDS: RANITIDINE HCL 150 MG TABLET (FP) PO SCH ×2 (10:42→22:30)
[2017-01-14] MEDS: PRENATAL VITAMINS W/ FOLIC ACID TABLET (FP) PO SCH (10:42)
--- NOTE | 2017-01-14 11:39 | PN ---
[facility] CIWA - CIWA Score Nausea/Vomitin Muscle Tremors: 4-Moderate,w/Arms Extend Anxiety: 4-Mod. Anxious/Guarded Agitation: 4-Moderately Restless Paroxysmal Sweats: 1-Minimal Palms Moist Orientation: 0-Oriented Tacttile Disturbances: 3-Moderate Itch/Numb/Burn Auditory Disturbances: 0-None Visual Disturbances: 0-None Headache: 0-None Present CIWA-Ar Total Score: 21 S COWS - Scale Resting Pulse: 0= [place] 80 or Below Sweatin= Chills/Flushing Restless Observation: 3= Extraneous Movement Pupil Size: 0= Normal to Room Light Bone or Joint Aches: 4=Acute Joint/Muscle Pain Runny Nose/ Eye Tearin= Nasal Congestion GI Upset > 30mins: 3= Vomiting/Diarrhea Tremor Observation of Outstretched Hands: 2= Slight Tremor Visible Yawning Observation: 1= 1-2x During Session Anxiety or Irritability: 2=Irritable/Anxious Goose Flesh Skin: 0=Smooth Skin COWS Score: 17 [facility] Progress Note (SOAP) Subjective: ANXIETY,IRRITABILITY,SWEATS/CHILLS,NAUSEA/VOMITING,LOST APPETITE,FATIGUE. Objective: 01/14/17 11:38 Vital Signs Temperature 98.1 F 01/14/17 10:11 Pulse Rate 80 01/14/17 10:11 Respiratory Rate 19 01/14/17 10:11 Blood Pressure 113/73 01/14/17 10:11 O2 Sat by Pulse Oximetry (%) Laboratory Last Values WBC 4.3 K/mm3 (4.0-10.0) 01/13/17 07:00 RBC 4.84 M/mm3 (4.00-5.60) 01/13/17 07:00 Hgb 14.1 GM/dL (11.7-16.9) 01/13/17 07:00 Hct 43.0 % (35.4-49) 01/13/17 07:00 MCV 88.7 fl (80-96) 01/13/17 07:00 MCHC 32.7 g/dl (32.0-35.9) 01/13/17 07:00 RDW 14.0 % (11.9-15.9) 01/13/17 07:00 Plt Count 114 K/MM3 (134-434) L 01/13/17 07:00 MPV 10.1 fl (7.5-11.1) D 01/13/17 07:00 Sodium 141 mmol/L (136-145) 01/13/17 07:00 Potassium 4.0 mmol/L (3.5-5.1) 01/13/17 07:00 Chloride 101 mmol/L (98-107) 01/13/17 07:00 Carbon Dioxide 32 mmol/L (21-32) 01/13/17 07:00 Anion Gap 8 (8-16) 01/13/17 07:00 BUN 7 mg/dL (7-18) D 01/13/17 07:00 Creatinine 0.8 mg/dL (0.7-1.3) 01/13/17 07:00 Creat Clearance w eGFR > 60 (>60) 01/13/17 07:00 Random Glucose 83 mg/dL (74-106) 01/13/17 07:00 Calcium 9.2 mg/dL (8.5-10.1) 01/13/17 07:00 Total Bilirubin 0.7 mg/dL (0.2-1.0) 01/13/17 07:00 AST 47 U/L (15-37) H D 01/13/17 07:00 ALT 38 U/L (12-78) D 01/13/17 07:00 Alkaline Phosphatase 84 U/L (45-117) 01/13/17 07:00 Total Protein 7.0 g/dl (6.4-8.2) 01/13/17 07:00 Albumin 3.6 g/dl (3.4-5.0) 01/13/17 07:00 Urine Color Yellow 01/13/17 00:14 Urine Appearance Turbid 01/13/17 00:14 Urine pH 5.0 (5.0-8.0) 01/13/17 00:14 Ur Specific [place] >= 1.030 (1.005-1.025) H 01/13/17 00:14 Urine Protein 1+ (NEGATIVE) H 01/13/17 00:14 Urine Glucose (UA) Negative (NEGATIVE) 01/13/17 00:14 Urine Ketones Negative (NEGATIVE) 01/13/17 00:14 Urine Blood Negative (NEGATIVE) 01/13/17 00:14 Urine Nitrite Negative (NEGATIVE) 01/13/17 00:14 Urine Bilirubin Negative (NEGATIVE) 01/13/17 00:14 Urine Urobilinogen 2.0 e.u/dl E.U./dl (0.2-1.0) 01/13/17 00:14 Ur Leukocyte Esterase Negative (NEGATIVE) 01/13/17 00:14 Urine RBC 3 /hpf (0-3) 01/13/17 00:14 Urine WBC None /hpf (3-5) 01/13/17 00:14 Urine Bacteria Few /hpf (NONE SEEN) 01/13/17 00:14 Hyaline Casts 7 /lpf 01/13/17 00:14 Urine Mucus Many 01/13/17 00:14 RPR Titer Nonreactive (NONREACTIVE) 01/13/17 07:00 Assessment: 01/14/17 11:38 WITHDRAWAL SX Plan: CONTINUE DETOX INCREASE PO FLUIDS
[2017-01-14] MEDS: THIAMINE HCL 100 MG TABLET (FP) PO SCH (22:30)
[2017-01-15] MEDS: METHADONE HCL 5 MG TABLET (FOR DETOX USE ONLY) PO SCH (10:33)
[2017-01-15] MEDS: BUDESONIDE/FORMETEROL FUMARATE 80/4.5 mcg INHALER IH SCH ×2 (10:33→22:17)
[2017-01-15] MEDS: RANITIDINE HCL 150 MG TABLET (FP) PO SCH ×2 (10:33→22:18)
[2017-01-15] MEDS: PRENATAL VITAMINS W/ FOLIC ACID TABLET (FP) PO SCH (10:33)
[2017-01-15] MEDS: diazePAM 5 MG TABLET PO SCH ×2 (10:33→22:18)
[2017-01-15] MEDS: NICOTINE 21 MG/24 HOURS TOPICAL PATCH TD SCH (10:34)
[2017-01-15] MEDS: diazePAM 5 MG TABLET PO PRN (14:20)
--- NOTE | 2017-01-15 15:32 | PN ---
[facility] Progress Note (SOAP) Subjective: Body Aches, Nausea, Interrupted Sleep, Tremors, Sweating. Objective: PT. A & O X 2 (DISORIENTED ABOUT DAY / DATE). NO ACUTE DISTRESS. 01/15/17 15:30 Vital Signs Temperature 96.5 F L 01/15/17 13:55 Pulse Rate 81 01/15/17 13:55 Respiratory Rate 20 01/15/17 13:55 Blood Pressure 104/74 01/15/17 13:55 O2 Sat by Pulse Oximetry (%) Laboratory Tests 01/13/17 01/13/17 01/13/17 00:14 07:00 07:00 WBC 4.3 RBC 4.84 Hgb 14.1 Hct 43.0 MCV 88.7 MCHC 32.7 RDW 14.0 Plt Count 114 L MPV 10.1 D Sodium 141 Potassium 4.0 Chloride 101 Carbon Dioxide 32 Anion Gap 8 BUN 7 D Creatinine 0.8 Creat Clearance w eGFR > 60 Random Glucose 83 Calcium 9.2 Total Bilirubin 0.7 AST 47 H D ALT 38 D Alkaline Phosphatase 84 Total Protein 7.0 Albumin 3.6 Urine Color Yellow Urine Appearance Turbid Urine pH 5.0 Ur Specific [place] >= 1.030 H Urine Protein 1+ H Urine Glucose (UA) Negative Urine Ketones Negative Urine Blood Negative Urine Nitrite Negative Urine Bilirubin Negative Urine Urobilinogen 2.0 e.u/dl Ur Leukocyte Esterase Negative Urine RBC 3 Urine WBC None Urine Bacteria Few Hyaline Casts 7 Urine Mucus Many RPR Titer 01/13/17 07:00 WBC RBC Hgb Hct MCV MCHC RDW Plt Count MPV Sodium Potassium Chloride Carbon Dioxide Anion Gap BUN Creatinine Creat Clearance w eGFR Random Glucose Calcium Total Bilirubin AST ALT Alkaline Phosphatase Total Protein Albumin Urine Color Urine Appearance Urine pH Ur Specific [place] Urine Protein Urine Glucose (UA) Urine Ketones Urine Blood Urine Nitrite Urine Bilirubin Urine Urobilinogen Ur Leukocyte Esterase Urine RBC Urine WBC Urine Bacteria Hyaline Casts Urine Mucus RPR Titer Nonreactive LABS NOTED. Assessment: 01/15/17 15:31 WITHDRAWAL SYMPTOMS. Plan: CONTINUE DETOX.
[2017-01-15] MEDS: THIAMINE HCL 100 MG TABLET (FP) PO SCH (22:17)
[2017-01-16] MEDS ORDERED: diazePAM 5 MG TABLET PO SCH (10:00)
[2017-01-16] MEDS ORDERED: METHADONE HCL 10 MG TABLET (FOR DETOX USE ONLY) PO SCH (10:00)
[2017-01-16] MEDS: RANITIDINE HCL 150 MG TABLET (FP) PO SCH ×2 (10:14→22:08)
[2017-01-16] MEDS: BUDESONIDE/FORMETEROL FUMARATE 80/4.5 mcg INHALER IH SCH ×2 (10:14→22:07)
[2017-01-16] MEDS: NICOTINE 21 MG/24 HOURS TOPICAL PATCH TD SCH (10:14)
[2017-01-16] MEDS: PRENATAL VITAMINS W/ FOLIC ACID TABLET (FP) PO SCH (10:14)
--- NOTE | 2017-01-16 13:50 | PN ---
[facility] Progress Note (SOAP) Subjective: Nausea, anxious, interrupted sleep; patient requesting clonidine to help him sleep and relax but his blood pressure is on the low side. As per patient, only clonidine helps him to sleep and relax. Patient aware that for his blood pressure has to be monitored in order for him to get clonidine. He is refusing benadryl or ambien for sleep. Objective: 01/16/17 13:50 Last Vital Signs Temp Pulse Resp BP Pulse Ox 98.4 F 83 18 90/70 01/16/17 11:13 01/16/17 11:13 01/16/17 11:13 01/16/17 11:13 Noted with low blood pressure 90/70 Laboratory Tests 01/13/17 01/13/17 01/13/17 00:14 07:00 07:00 WBC 4.3 RBC 4.84 Hgb 14.1 Hct 43.0 MCV 88.7 MCHC 32.7 RDW 14.0 Plt Count 114 L MPV 10.1 D Sodium 141 Potassium 4.0 Chloride 101 Carbon Dioxide 32 Anion Gap 8 BUN 7 D Creatinine 0.8 Creat Clearance w eGFR > 60 Random Glucose 83 Calcium 9.2 Total Bilirubin 0.7 AST 47 H D ALT 38 D Alkaline Phosphatase 84 Total Protein 7.0 Albumin 3.6 Urine Color Yellow Urine Appearance Turbid Urine pH 5.0 Ur Specific [place] >= 1.030 H Urine Protein 1+ H Urine Glucose (UA) Negative Urine Ketones Negative Urine Blood Negative Urine Nitrite Negative Urine Bilirubin Negative Urine Urobilinogen 2.0 e.u/dl Ur Leukocyte Esterase Negative Urine RBC 3 Urine WBC None Urine Bacteria Few Hyaline Casts 7 Urine Mucus Many RPR Titer 01/13/17 07:00 WBC RBC Hgb Hct MCV MCHC RDW Plt Count MPV Sodium Potassium Chloride Carbon Dioxide Anion Gap BUN Creatinine Creat Clearance w eGFR Random Glucose Calcium Total Bilirubin AST ALT Alkaline Phosphatase Total Protein Albumin Urine Color Urine Appearance Urine pH Ur Specific [place] Urine Protein Urine Glucose (UA) Urine Ketones Urine Blood Urine Nitrite Urine Bilirubin Urine Urobilinogen Ur Leukocyte Esterase Urine RBC Urine WBC Urine Bacteria Hyaline Casts Urine Mucus RPR Titer Nonreactive Labs noted Assessment: 01/16/17 13:55 Withdrawal symptoms Noted with hypotension Plan: Continue detox Hypotension: encouraged to drink lots of water, continue to monitor vital signs. Will not order clonidine due to trends of low blood pressure.
[2017-01-16] MEDS: THIAMINE HCL 100 MG TABLET (FP) PO SCH (22:07)
[2017-01-17] MEDS ORDERED: METHADONE HCL 5 MG TABLET (FOR DETOX USE ONLY) PO SCH (06:00)
[2017-01-17 08:56] VITALS: BP 111/71; PULSE 73; TEMP 97
[2017-01-17] MEDS: PRENATAL VITAMINS W/ FOLIC ACID TABLET (FP) PO SCH (09:03)
[2017-01-17] MEDS: BUDESONIDE/FORMETEROL FUMARATE 80/4.5 mcg INHALER IH SCH (09:04)
[2017-01-17] MEDS: NICOTINE 21 MG/24 HOURS TOPICAL PATCH TD SCH (09:04)
[2017-01-17] MEDS: RANITIDINE HCL 150 MG TABLET (FP) PO SCH (09:06)
--- NOTE | 2017-01-17 13:24 | DS ---
[facility] Detox Discharge Summary Admission Date: 01/12/17 Discharge Date: 01/17/17 - History Present History: Alcohol Dependence, Cannabis Dependence, Cocaine Dependence, Opioid Dependence, Sedative Dependence Additional Comments: ADVISED PATIENT TO FOLLOW-UP FOR [facility] PER DETOX DISCHARGE ARRANGEMENT. Pertinent Past History: Asthma, Hep C, Bipolar disorder, GERD. - Physical Exam Results Vital Signs: Vital Signs Temperature 97.0 F L 01/17/17 08:55 Pulse Rate 73 01/17/17 08:55 Respiratory Rate 18 01/17/17 08:55 Blood Pressure 111/71 01/17/17 08:55 O2 Sat by Pulse Oximetry (%) Pertinent Admission Physical Exam Findings: WITHDRAWAL SYMPTOMS. Laboratory Tests 01/13/17 01/13/17 01/13/17 00:14 07:00 07:00 WBC 4.3 RBC 4.84 Hgb 14.1 Hct 43.0 MCV 88.7 MCHC 32.7 RDW 14.0 Plt Count 114 L MPV 10.1 D Sodium 141 Potassium 4.0 Chloride 101 Carbon Dioxide 32 Anion Gap 8 BUN 7 D Creatinine 0.8 Creat Clearance w eGFR > 60 Random Glucose 83 Calcium 9.2 Total Bilirubin 0.7 AST 47 H D ALT 38 D Alkaline Phosphatase 84 Total Protein 7.0 Albumin 3.6 Urine Color Yellow Urine Appearance Turbid Urine pH 5.0 Ur Specific [place] >= 1.030 H Urine Protein 1+ H Urine Glucose (UA) Negative Urine Ketones Negative Urine Blood Negative Urine Nitrite Negative Urine Bilirubin Negative Urine Urobilinogen 2.0 e.u/dl Ur Leukocyte Esterase Negative Urine RBC 3 Urine WBC None Urine Bacteria Few Hyaline Casts 7 Urine Mucus Many RPR Titer 01/13/17 07:00 WBC RBC Hgb Hct MCV MCHC RDW Plt Count MPV Sodium Potassium Chloride Carbon Dioxide Anion Gap BUN Creatinine Creat Clearance w eGFR Random Glucose Calcium Total Bilirubin AST ALT Alkaline Phosphatase Total Protein Albumin Urine Color Urine Appearance Urine pH Ur Specific [place] Urine Protein Urine Glucose (UA) Urine Ketones Urine Blood Urine Nitrite Urine Bilirubin Urine Urobilinogen Ur Leukocyte Esterase Urine RBC Urine WBC Urine Bacteria Hyaline Casts Urine Mucus RPR Titer Nonreactive LABS NOTED. - Treatment Hospital Course: Detox Protocol Followed, Detoxed Safely, Responded well, Discharged Condition Good, Rehab Referral Accepted Patient has Accepted a Rehab Referral to: [facility]. - Medication Discharge Medications: Ambulatory Orders Albuterol Sulfate Inhaler - [Ventolin HFA Inhaler -] 2 inh IH Q4H PRN #0 inh Salmeterol/Fluticasone [Advair 250Mcg/50Mcg] 1 inh PO BID 12/06/16 - Diagnosis (1) Alcohol dependence with uncomplicated withdrawal Status: Acute (2) Nicotine dependence Status: Chronic Qualifiers: Nicotine product type: cigarettes Substance use status: in withdrawal Qualified Code(s): F17.213 - Nicotine dependence, cigarettes, with withdrawal (3) Opioid dependence with withdrawal Status: Acute (4) Sedative, hypnotic or anxiolytic dependence with withdrawal, uncomplicated Status: Acute (5) Substance induced mood disorder Status: Acute (6) Weight loss Status: Acute (7) Asthma Status: Chronic (8) COPD (chronic obstructive pulmonary disease) Status: Chronic Qualifiers: COPD type: emphysema Emphysema type: other Qualified Code(s): J43.8 - Other emphysema (9) Cannabis dependence, uncomplicated Status: Chronic (10) Cocaine dependence, uncomplicated Status: Acute (11) GERD (gastroesophageal reflux disease) Status: Chronic Qualifiers: Esophagitis presence: without esophagitis Qualified Code(s): K21.9 - Gastro-esophageal reflux disease without esophagitis (12) Bipolar II disorder Status: Suspected - AMA Did Patient Leave Against Medical Advice: No
== END 2017-01-17 12:04 | disposition other institution (70) | DRG 773 ==
LOC: YASAS 12:56 → Y3N 16:52
PROVIDERS: ADMIT Internal Medicine; ATTEND Internal Medicine
PROC: HZ2ZZZZ Detoxification Services for Substance Abuse Treatment (ICD-10-PCS; principal; 2017-01-12)
DX: F11.23 Opioid dependence with withdrawal (principal); F13.230 Sedative, hypnotic or anxiolytic dependence with withdrawal, uncomplicated; F10.230 Alcohol dependence with withdrawal, uncomplicated; F14.20 Cocaine dependence, uncomplicated; F12.20 Cannabis dependence, uncomplicated; F17.213 Nicotine dependence, cigarettes, with withdrawal; F19.24 Other psychoactive substance dependence with psychoactive substance-induced mood disorder; F31.81 Bipolar II disorder; J45.909 Unspecified asthma, uncomplicated; J43.8 Other emphysema; K21.9 Gastro-esophageal reflux disease without esophagitis; B18.2 Chronic viral hepatitis C; R00.1 Bradycardia, unspecified; I95.9 Hypotension, unspecified; Z87.898 Personal history of other specified conditions; Z59.0 Homelessness
CPT/HCPCS: 36415; 80053; 81003; 81015; 85027; 86593; 93005; 93010

== ENCOUNTER 2017-01-17 12:09 | Inpatient (IN) | payer OTHER ==
[2017-01-17 12:59] VITALS: BMI 23.3
[2017-01-17] MEDS ORDERED: ALBUTEROL SO4 6.7 GM HFA INHALER IH PRN ×2 (13:26→16:27)
[2017-01-17] MEDS ORDERED: NICOTINE POLACRILEX 4 MG GUM BUC PRN (13:26)
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
--- NOTE | 2017-01-17 16:23 | HP ---
WILBERTO ORDONEZ Rehab Assess/Revision - Admission History Admitted to Rehab from: [facility] Date of Admission to Rehab: 01/17/17 - Vital signs Vital Signs: Vital Signs Period Temp Pulse Resp BP Sys/Siegel Pulse Ox Last 24 Hr 97.4 F 68 18 120/63 - Findings Detox History & Physical reviewed: Yes Concur with findings: Yes Comments/Additional Findings: TRANSFERRED FROM DETOX TO REHAB ADMISSION PER PROTOCOL
[2017-01-17] MEDS ORDERED: diphenhydrAMINE HCL 50 MG CAPSULE PO PRN (16:24)
[2017-01-17] MEDS ORDERED: MAGNESIUM HYDROX 2400MG/30ML ORAL SUSPENSION 30 ML CUP PO PRN (16:24)
[2017-01-17] MEDS ORDERED: MAGNESIUM CITRATE 300 ML BOTTLE PO PRN (16:24)
[2017-01-17] MEDS ORDERED: ACETAMINOPHEN 325 MG TABLET (FP) PO PRN (16:24)
[2017-01-17] MEDS ORDERED: LOPERAMIDE HCL 2 MG CAPSULE PO PRN (16:24)
[2017-01-17] MEDS ORDERED: guaiFENesin/D-METHORPHAN HB 10 ML UNIT-DOSE CUPS PO PRN (16:24)
[2017-01-17] MEDS ORDERED: P-EPHED 60MG/TRIPROLIDI 2.5MG TABLET PO PRN (16:24)
[2017-01-17] MEDS ORDERED: MAG HYDROX/AL HYDROX/SIMETH 30 ML UNIT-DOSE CUP PO PRN (16:24)
[2017-01-17] MEDS ORDERED: MENTHOL/PHENOL 1 EACH UD MM PRN (16:24)
[2017-01-17] MEDS ORDERED: NICOTINE 14 MG/24 HOURS TOPICAL PATCH TD PRN (16:24)
[2017-01-17] MEDS ORDERED: NICOTINE POLACRILEX 2 MG GUM BUC PRN (16:24)
[2017-01-17] MEDS: BUDESONIDE/FORMETEROL FUMARATE 80/4.5 mcg INHALER IH SCH (22:07)
[2017-01-17] MEDS: THIAMINE HCL 100 MG TABLET (FP) PO SCH (22:07)
[2017-01-18] MEDS: PRENATAL VITAMINS W/ FOLIC ACID TABLET (FP) PO SCH (10:11)
[2017-01-18] MEDS: BUDESONIDE/FORMETEROL FUMARATE 80/4.5 mcg INHALER IH SCH ×2 (10:11→21:29)
[2017-01-18 14:43] LABS: HIV 1 & 2 AB NEGATIVE; HIV 1 AGp24 NEGATIVE
[2017-01-18] MEDS: THIAMINE HCL 100 MG TABLET (FP) PO SCH (21:29)
[2017-01-18] MEDS: BACITRACIN 0.9 GM PACKET TP SCH (21:29)
[2017-01-19] MEDS: PRENATAL VITAMINS W/ FOLIC ACID TABLET (FP) PO SCH (09:26)
[2017-01-19] MEDS: BACITRACIN 0.9 GM PACKET TP SCH ×2 (09:27→21:25)
[2017-01-19] MEDS: BUDESONIDE/FORMETEROL FUMARATE 80/4.5 mcg INHALER IH SCH ×2 (09:27→21:25)
--- NOTE | 2017-01-19 09:56 | PN ---
[facility] Progress Note Note: ABSCESS LEFT OCCIPITAL AREA WITH SPONTANEOUS DRAINAGE,BACITRACIN OINTMENT BID, BACTRIM DS 1 TAB PO BID Vital Signs Temperature 98.4 F 01/19/17 06:00 Pulse Rate 66 01/19/17 06:00 Respiratory Rate 18 01/19/17 06:00 Blood Pressure 99/63 01/19/17 06:00 O2 Sat by Pulse Oximetry (%)
[2017-01-19] MEDS: SULFAMETHOXAZOLE/TRIMETHOPRIM 800MG/160MG D.S. TABLET PO SCH ×2 (10:09→21:25)
[2017-01-19] MEDS: THIAMINE HCL 100 MG TABLET (FP) PO SCH (21:25)
[2017-01-20] MEDS: PRENATAL VITAMINS W/ FOLIC ACID TABLET (FP) PO SCH (09:58)
[2017-01-20] MEDS: BUDESONIDE/FORMETEROL FUMARATE 80/4.5 mcg INHALER IH SCH ×2 (09:58→21:27)
[2017-01-20] MEDS: BACITRACIN 0.9 GM PACKET TP SCH ×2 (09:58→21:28)
[2017-01-20] MEDS: SULFAMETHOXAZOLE/TRIMETHOPRIM 800MG/160MG D.S. TABLET PO SCH ×2 (09:58→21:28)
[2017-01-20] MEDS: THIAMINE HCL 100 MG TABLET (FP) PO SCH (21:28)
[2017-01-21] MEDS: BUDESONIDE/FORMETEROL FUMARATE 80/4.5 mcg INHALER IH SCH ×2 (09:08→21:20)
[2017-01-21] MEDS: SULFAMETHOXAZOLE/TRIMETHOPRIM 800MG/160MG D.S. TABLET PO SCH ×2 (09:09→21:20)
[2017-01-21] MEDS: BACITRACIN 0.9 GM PACKET TP SCH ×2 (09:09→21:20)
[2017-01-21] MEDS: PRENATAL VITAMINS W/ FOLIC ACID TABLET (FP) PO SCH (09:09)
[2017-01-21] MEDS: IBUPROFEN 400 MG TABLET (FP) PO PRN (09:09)
[2017-01-21] MEDS: THIAMINE HCL 100 MG TABLET (FP) PO SCH (21:20)
[2017-01-22] MEDS: IBUPROFEN 400 MG TABLET (FP) PO PRN ×2 (00:22→17:51)
[2017-01-22] MEDS: SULFAMETHOXAZOLE/TRIMETHOPRIM 800MG/160MG D.S. TABLET PO SCH ×2 (10:00→21:51)
[2017-01-22] MEDS: PRENATAL VITAMINS W/ FOLIC ACID TABLET (FP) PO SCH (10:00)
[2017-01-22] MEDS: BACITRACIN 0.9 GM PACKET TP SCH ×2 (10:00→21:51)
[2017-01-22] MEDS: BUDESONIDE/FORMETEROL FUMARATE 80/4.5 mcg INHALER IH SCH ×2 (10:00→21:51)
[2017-01-22] MEDS ORDERED: COLLOIDAL OATMEAL 1 BAR EACH TP PRN (18:37)
[2017-01-22] MEDS: THIAMINE HCL 100 MG TABLET (FP) PO SCH (21:51)
[2017-01-23] MEDS: SULFAMETHOXAZOLE/TRIMETHOPRIM 800MG/160MG D.S. TABLET PO SCH ×2 (09:52→21:46)
[2017-01-23] MEDS: BUDESONIDE/FORMETEROL FUMARATE 80/4.5 mcg INHALER IH SCH ×2 (09:52→21:46)
[2017-01-23] MEDS: BACITRACIN 0.9 GM PACKET TP SCH ×2 (09:52→21:46)
[2017-01-23] MEDS: PRENATAL VITAMINS W/ FOLIC ACID TABLET (FP) PO SCH (09:52)
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
[2017-01-23] MEDS: THIAMINE HCL 100 MG TABLET (FP) PO SCH (21:46)
[2017-01-23] MEDS: IBUPROFEN 400 MG TABLET (FP) PO PRN (21:48)
[2017-01-24] MEDS: BUDESONIDE/FORMETEROL FUMARATE 80/4.5 mcg INHALER IH SCH ×2 (10:25→21:40)
[2017-01-24] MEDS: PRENATAL VITAMINS W/ FOLIC ACID TABLET (FP) PO SCH (10:25)
[2017-01-24] MEDS: SULFAMETHOXAZOLE/TRIMETHOPRIM 800MG/160MG D.S. TABLET PO SCH ×2 (10:25→21:41)
[2017-01-24] MEDS: BACITRACIN 0.9 GM PACKET TP SCH ×2 (10:25→21:46)
[2017-01-24] MEDS: IBUPROFEN 400 MG TABLET (FP) PO PRN (19:36)
[2017-01-24] MEDS: THIAMINE HCL 100 MG TABLET (FP) PO SCH (21:41)
[2017-01-25] MEDS: BACITRACIN 0.9 GM PACKET TP SCH ×2 (10:19→21:51)
[2017-01-25] MEDS: PRENATAL VITAMINS W/ FOLIC ACID TABLET (FP) PO SCH (10:19)
[2017-01-25] MEDS: BUDESONIDE/FORMETEROL FUMARATE 80/4.5 mcg INHALER IH SCH ×2 (10:20→21:51)
[2017-01-25] MEDS: SULFAMETHOXAZOLE/TRIMETHOPRIM 800MG/160MG D.S. TABLET PO SCH ×2 (10:20→21:50)
[2017-01-25] MEDS: THIAMINE HCL 100 MG TABLET (FP) PO SCH (21:51)
[2017-01-26 06:37] VITALS: PULSE 71
[2017-01-26] MEDS: BUDESONIDE/FORMETEROL FUMARATE 80/4.5 mcg INHALER IH SCH ×2 (09:48→21:15)
[2017-01-26] MEDS: PRENATAL VITAMINS W/ FOLIC ACID TABLET (FP) PO SCH (09:49)
[2017-01-26] MEDS: SULFAMETHOXAZOLE/TRIMETHOPRIM 800MG/160MG D.S. TABLET PO SCH ×2 (09:49→21:14)
[2017-01-26] MEDS: BACITRACIN 0.9 GM PACKET TP SCH ×2 (09:49→21:15)
[2017-01-26] MEDS: THIAMINE HCL 100 MG TABLET (FP) PO SCH (21:14)
[2017-01-27 06:12] VITALS: BP 113/61; TEMP 98.3
[2017-01-27] MEDS: IBUPROFEN 400 MG TABLET (FP) PO PRN (07:20)
[2017-01-27] MEDS: SULFAMETHOXAZOLE/TRIMETHOPRIM 800MG/160MG D.S. TABLET PO SCH (09:52)
[2017-01-27] MEDS: PRENATAL VITAMINS W/ FOLIC ACID TABLET (FP) PO SCH (09:53)
[2017-01-27] MEDS: BACITRACIN 0.9 GM PACKET TP SCH (09:53)
[2017-01-27] MEDS: BUDESONIDE/FORMETEROL FUMARATE 80/4.5 mcg INHALER IH SCH (09:53)
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
== END 2017-01-27 13:30 | disposition home or self-care (01) | DRG 772 ==
LOC: YASAS 12:09 → Y3W 12:12
PROVIDERS: ADMIT Psychiatry & Neurology Psychiatry; ATTEND Psychiatry & Neurology Psychiatry
PROC: HZ42ZZZ Group Counseling for Substance Abuse Treatment, Cognitive-Behavioral (ICD-10-PCS; principal; 2017-01-17)
DX: F11.20 Opioid dependence, uncomplicated (principal); F13.20 Sedative, hypnotic or anxiolytic dependence, uncomplicated; F10.20 Alcohol dependence, uncomplicated; F14.20 Cocaine dependence, uncomplicated; F17.213 Nicotine dependence, cigarettes, with withdrawal; F31.81 Bipolar II disorder; J45.909 Unspecified asthma, uncomplicated; K21.9 Gastro-esophageal reflux disease without esophagitis; B18.2 Chronic viral hepatitis C; L02.811 Cutaneous abscess of head [any part, except face]; Z87.828 Personal history of other (healed) physical injury and trauma; Z86.69 Personal history of other diseases of the nervous system and sense organs; Z59.0 Homelessness
CPT/HCPCS: 36415; 87389

== ENCOUNTER 2018-02-12 13:57 | Inpatient (IN) | payer OTHER ==
[2018-02-12 14:03] VITALS: BMI 23.1
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
[2018-02-12] MEDS ORDERED: ACETAMINOPHEN 325 MG TABLET (FP) PO PRN (17:10)
[2018-02-12] MEDS ORDERED: MAGNESIUM HYDROX 2400MG/30ML ORAL SUSPENSION 30 ML CUP PO PRN (17:10)
[2018-02-12] MEDS ORDERED: hydrOXYzine PAMOATE 25 MG CAPSULE (FP) PO PRN (17:10)
[2018-02-12] MEDS ORDERED: MENTHOL/PHENOL 1 EACH UD MM PRN (17:10)
[2018-02-12] MEDS ORDERED: P-EPHED 60MG/TRIPROLIDI 2.5MG TABLET PO PRN (17:10)
[2018-02-12] MEDS ORDERED: LOPERAMIDE HCL 2 MG CAPSULE PO PRN (17:10)
[2018-02-12] MEDS ORDERED: MAGNESIUM CITRATE 300 ML BOTTLE PO PRN (17:10)
[2018-02-12] MEDS ORDERED: IBUPROFEN 400 MG TABLET (FP) PO PRN (17:10)
[2018-02-12] MEDS ORDERED: guaiFENesin/D-METHORPHAN HB 10 ML UNIT-DOSE CUPS PO PRN (17:10)
[2018-02-12] MEDS ORDERED: NICOTINE POLACRILEX 2 MG GUM BC PRN (17:10)
[2018-02-12] MEDS ORDERED: MAG HYDROX/AL HYDROX/SIMETH 30 ML UNIT-DOSE CUP PO PRN (17:10)
[2018-02-12] MEDS ORDERED: METHADONE HCL 10 MG TABLET (FOR DETOX USE ONLY) PO ONE ×2 (17:30→23:00)
[2018-02-12] MEDS ORDERED: diazePAM 5 MG TABLET PO ONE (17:30)
[2018-02-12] MEDS ORDERED: MELATONIN 5 MG TABLETS PO PRN (22:00)
[2018-02-12 23:01] LABS: URINE APPEARANCE CLEAR; URINE BILIRUBIN NEGATIVE (<2.0 mg/dL); URINE COLOR YELLOW; URINE GLUCOSE (UA) NEGATIVE (NEGATIVE); URINE KETONE NEGATIVE (NEGATIVE); URINE LEUK ESTERASE NEGATIVE (NEGATIVE); URINE NITRITE NEGATIVE (NEGATIVE); URINE PROTEIN NEGATIVE (NEGATIVE)
[2018-02-12] MEDS: CYCLOBENZAPRINE HCL 10 MG TABLET (FP) PO PRN (23:33)
[2018-02-12] MEDS: diazePAM 5 MG TABLET PO SCH (23:33)
[2018-02-12] MEDS: THIAMINE HCL 100 MG TABLET (FP) PO SCH (23:33)
[2018-02-12] MEDS: cloNIDine HCL 0.1 MG TABLET PO SCH (23:33)
[2018-02-13] MEDS: diazePAM 5 MG TABLET PO SCH ×3 (05:30→22:05)
[2018-02-13 09:35] LABS: HEMATOCRIT 43.7 % (35.4-49); HEMOGLOBIN 14.5 GM/dL (11.7-16.9); MCH 29.6 pg (25.7-33.7); MCHC 33.1 g/dl (32.0-35.9); MEAN CELL VOLUME 89.4 fl (80-96); MEAN PLT VOLUME 11.2 fl (7.5-11.1); PLATELET COUNT 130 K/MM3 (134-434); RBC 4.89 M/mm3 (4.00-5.60); RDW 13.9 % (11.9-15.9)
[2018-02-13 09:58] LABS: ALBUMIN 3.4 g/dl (3.4-5.0); ANION GAP 6 (8-16); BLOOD UREA NITROGEN 9 mg/dL (7-18); CALCIUM 9.3 mg/dL (8.5-10.1); CHLORIDE 105 mmol/L (98-107); CO2 31 mmol/L (21-32); GLUCOSE,RANDOM 73 mg/dL (74-106); POTASSIUM 3.8 mmol/L (3.5-5.1); SODIUM 142 mmol/L (136-145)
[2018-02-13] MEDS ORDERED: METHADONE HCL 10 MG TABLET (FOR DETOX USE ONLY) PO SCH (10:00)
[2018-02-13 10:02] LABS: ALK PHOS 106 U/L (45-117); BILIRUBIN,TOTAL 0.6 mg/dL (0.2-1.0); CREATININE 0.7 mg/dL (0.7-1.3); SGOT/AST 22 U/L (15-37); SGPT/ALT 25 U/L (12-78); TOT PROT 7.2 g/dl (6.4-8.2)
[2018-02-13] MEDS: PRENATAL VITAMINS W/ FOLIC ACID TABLET (FP) PO SCH (10:41)
[2018-02-13] MEDS: cloNIDine HCL 0.1 MG TABLET PO SCH ×2 (10:41→22:05)
[2018-02-13] MEDS: diazePAM 5 MG TABLET PO PRN (10:42)
--- NOTE | 2018-02-13 11:43 | EKG ---
Test Reason : Blood Pressure : / mmHG Vent. Rate : 062 BPM Atrial Rate : 062 BPM P-R Int : 136 ms QRS Dur : 094 ms QT Int : 406 ms P-R-T Axes : 031 092 057 degrees QTc Int : 412 ms NORMAL SINUS RHYTHM RIGHTWARD AXIS BORDERLINE ECG WHEN COMPARED WITH ECG OF 12-JAN-2017 18:46, NO SIGNIFICANT CHANGE WAS FOUND Confirmed by YESSY ORDONEZ, SAMMIE ([id number]) on 02/13/2018 11:42:45 AM Referred By: Confirmed By:SAMMIE KRISHNAMURTHY MD
--- NOTE | 2018-02-13 12:24 | PN ---
[facility] CIWA - CIWA Score Nausea/Vomitin-No Nausea/No Vomiting Muscle Tremors: 4-Moderate,w/Arms Extend Anxiety: 4-Mod. Anxious/Guarded Agitation: 4-Moderately Restless Paroxysmal Sweats: 1-Minimal Palms Moist Orientation: 0-Oriented Tacttile Disturbances: 0-None Auditory Disturbances: 0-None Visual Disturbances: 0-None Headache: 0-None Present CIWA-Ar Total Score: 13 S COWS - Scale Resting Pulse: 0= [place] 80 or Below Sweatin= Chills/Flushing Restless Observation: 3= Extraneous Movement Pupil Size: 0= Normal to Room Light Bone or Joint Aches: 4=Acute Joint/Muscle Pain Runny Nose/ Eye Tearin= None GI Upset > 30mins: 0= None Tremor Observation of Outstretched Hands: 1= Tremor [place], Not Seen Yawning Observation: 1= 1-2x During Session Anxiety or Irritability: 2=Irritable/Anxious Goose Flesh Skin: 0=Smooth Skin COWS Score: 12 S Progress Note (SOAP) Subjective: ANXIETY,SWEATS/CHILLS,RESTLESSNESS. Objective: 02/13/18 12:24 Vital Signs 02/13/18 02/13/18 06:36 09:12 Temperature 97.0 F L 98.6 F Pulse Rate 67 72 Respiratory 18 15 Rate Blood Pressure 119/61 110/74 Laboratory Tests 02/12/18 02/13/18 02/13/18 22:40 07:00 07:00 WBC 5.0 RBC 4.89 Hgb 14.5 Hct 43.7 MCV 89.4 MCH 29.6 MCHC 33.1 RDW 13.9 Plt Count 130 L MPV 11.2 H D Sodium 142 Potassium 3.8 Chloride 105 Carbon Dioxide 31 Anion Gap 6 L BUN 9 Creatinine 0.7 Creat Clearance w eGFR > 60 Random Glucose 73 L Calcium 9.3 Total Bilirubin 0.6 AST 22 D ALT 25 D Alkaline Phosphatase 106 Total Protein 7.2 Albumin 3.4 Urine Color Yellow Urine Appearance Clear Urine pH 5.0 Ur Specific [place] 1.023 Urine Protein Negative Urine Glucose (UA) Negative Urine Ketones Negative Urine Blood Negative Urine Nitrite Negative Urine Bilirubin Negative Urine Urobilinogen 2.0 Ur Leukocyte Esterase Negative RPR Titer 02/13/18 07:00 WBC RBC Hgb Hct MCV MCH MCHC RDW Plt Count MPV Sodium Potassium Chloride Carbon Dioxide Anion Gap BUN Creatinine Creat Clearance w eGFR Random Glucose Calcium Total Bilirubin AST ALT Alkaline Phosphatase Total Protein Albumin Urine Color Urine Appearance Urine pH Ur Specific [place] Urine Protein Urine Glucose (UA) Urine Ketones Urine Blood Urine Nitrite Urine Bilirubin Urine Urobilinogen Ur Leukocyte Esterase RPR Titer Nonreactive Assessment: 02/13/18 12:24 WITHDRAWAL SX Plan: CONTINUE DETOX
[2018-02-13] MEDS: THIAMINE HCL 100 MG TABLET (FP) PO SCH (22:05)
[2018-02-14] MEDS: CYCLOBENZAPRINE HCL 10 MG TABLET (FP) PO PRN (05:25)
[2018-02-14] MEDS: diazePAM 5 MG TABLET PO PRN ×2 (05:25→15:20)
[2018-02-14] MEDS: PRENATAL VITAMINS W/ FOLIC ACID TABLET (FP) PO SCH (10:47)
[2018-02-14] MEDS: cloNIDine HCL 0.1 MG TABLET PO SCH ×2 (10:47→22:05)
[2018-02-14] MEDS: METHADONE HCL 5 MG TABLET (FOR DETOX USE ONLY) PO SCH (10:47)
[2018-02-14] MEDS: diazePAM 5 MG TABLET PO SCH ×2 (10:48→22:05)
--- NOTE | 2018-02-14 12:35 | PN ---
S CIWA - CIWA Score Nausea/Vomitin-No Nausea/No Vomiting Muscle Tremors: 4-Moderate,w/Arms Extend Anxiety: 4-Mod. Anxious/Guarded Agitation: 4-Moderately Restless Paroxysmal Sweats: 1-Minimal Palms Moist Orientation: 0-Oriented Tacttile Disturbances: 0-None Auditory Disturbances: 0-None Visual Disturbances: 0-None Headache: 0-None Present CIWA-Ar Total Score: 13 S COWS - Scale Resting Pulse: 0= [place] 80 or Below Sweatin= Chills/Flushing Restless Observation: 3= Extraneous Movement Pupil Size: 0= Normal to Room Light Bone or Joint Aches: 1= Mild Discomfort Runny Nose/ Eye Tearin= None GI Upset > 30mins: 1= Stomach Cramp Tremor Observation of Outstretched Hands: 2= Slight Tremor Visible Yawning Observation: 2= >3x During Session Anxiety or Irritability: 2=Irritable/Anxious Goose Flesh Skin: 0=Smooth Skin COWS Score: 12 S Progress Note (SOAP) Subjective: ANXIETY,SWEATS,RESTLESSNESS,FATIGUE. Objective: 02/14/18 12:36 Vital Signs 02/14/18 02/14/18 02/14/18 06:08 06:30 09:05 Temperature 97.1 F L 97.5 F L Pulse Rate 52 L 53 L Respiratory 18 18 16 Rate Blood Pressure 101/59 106/67 Laboratory Tests 02/12/18 02/13/18 02/13/18 22:40 07:00 07:00 WBC 5.0 RBC 4.89 Hgb 14.5 Hct 43.7 MCV 89.4 MCH 29.6 MCHC 33.1 RDW 13.9 Plt Count 130 L MPV 11.2 H D Sodium 142 Potassium 3.8 Chloride 105 Carbon Dioxide 31 Anion Gap 6 L BUN 9 Creatinine 0.7 Creat Clearance w eGFR > 60 Random Glucose 73 L Calcium 9.3 Total Bilirubin 0.6 AST 22 D ALT 25 D Alkaline Phosphatase 106 Total Protein 7.2 Albumin 3.4 Urine Color Yellow Urine Appearance Clear Urine pH 5.0 Ur Specific [place] 1.023 Urine Protein Negative Urine Glucose (UA) Negative Urine Ketones Negative Urine Blood Negative Urine Nitrite Negative Urine Bilirubin Negative Urine Urobilinogen 2.0 Ur Leukocyte Esterase Negative RPR Titer 02/13/18 07:00 WBC RBC Hgb Hct MCV MCH MCHC RDW Plt Count MPV Sodium Potassium Chloride Carbon Dioxide Anion Gap BUN Creatinine Creat Clearance w eGFR Random Glucose Calcium Total Bilirubin AST ALT Alkaline Phosphatase Total Protein Albumin Urine Color Urine Appearance Urine pH Ur Specific [place] Urine Protein Urine Glucose (UA) Urine Ketones Urine Blood Urine Nitrite Urine Bilirubin Urine Urobilinogen Ur Leukocyte Esterase RPR Titer Nonreactive Assessment: 02/14/18 12:36 WITHDRAWAL SX Plan: CONTINUE DETOX
[2018-02-14] MEDS: THIAMINE HCL 100 MG TABLET (FP) PO SCH (22:06)
[2018-02-15] MEDS: diazePAM 5 MG TABLET PO PRN ×2 (05:25→14:56)
[2018-02-15] MEDS ORDERED: ONDANSETRON *ODT* 4 MG TABLET SL PRN (10:08)
[2018-02-15] MEDS: METHADONE HCL 5 MG TABLET (FOR DETOX USE ONLY) PO SCH (10:31)
[2018-02-15] MEDS: PRENATAL VITAMINS W/ FOLIC ACID TABLET (FP) PO SCH (10:31)
[2018-02-15] MEDS: diazePAM 5 MG TABLET PO SCH ×2 (10:31→22:39)
[2018-02-15] MEDS: cloNIDine HCL 0.1 MG TABLET PO SCH ×2 (10:31→22:39)
--- NOTE | 2018-02-15 11:39 | PN ---
[facility] Progress Note (SOAP) Subjective: C/O HOT/COLD CHILLS, NAUSEA/VOMITING,TEARY EYES,ANXIETY,INTERMITTENT SLEEP. Objective: 02/15/18 11:38 Vital Signs 02/15/18 02/15/18 06:09 09:15 Temperature 97.6 F 96.6 F L Pulse Rate 55 L 73 Respiratory 18 18 Rate Blood Pressure 111/61 92/61 Laboratory Tests 02/12/18 02/13/18 02/13/18 22:40 07:00 07:00 WBC 5.0 RBC 4.89 Hgb 14.5 Hct 43.7 MCV 89.4 MCH 29.6 MCHC 33.1 RDW 13.9 Plt Count 130 L MPV 11.2 H D Sodium 142 Potassium 3.8 Chloride 105 Carbon Dioxide 31 Anion Gap 6 L BUN 9 Creatinine 0.7 Creat Clearance w eGFR > 60 Random Glucose 73 L Calcium 9.3 Total Bilirubin 0.6 AST 22 D ALT 25 D Alkaline Phosphatase 106 Total Protein 7.2 Albumin 3.4 Urine Color Yellow Urine Appearance Clear Urine pH 5.0 Ur Specific [place] 1.023 Urine Protein Negative Urine Glucose (UA) Negative Urine Ketones Negative Urine Blood Negative Urine Nitrite Negative Urine Bilirubin Negative Urine Urobilinogen 2.0 Ur Leukocyte Esterase Negative RPR Titer 02/13/18 07:00 WBC RBC Hgb Hct MCV MCH MCHC RDW Plt Count MPV Sodium Potassium Chloride Carbon Dioxide Anion Gap BUN Creatinine Creat Clearance w eGFR Random Glucose Calcium Total Bilirubin AST ALT Alkaline Phosphatase Total Protein Albumin Urine Color Urine Appearance Urine pH Ur Specific [place] Urine Protein Urine Glucose (UA) Urine Ketones Urine Blood Urine Nitrite Urine Bilirubin Urine Urobilinogen Ur Leukocyte Esterase RPR Titer Nonreactive Assessment: 02/15/18 11:38 WITHDRAWAL SX Plan: CONTINUE DETOX INCREASE PO FLUIDS
[2018-02-15] MEDS ORDERED: COLLOIDAL OATMEAL 1 BAR EACH TP PRN (14:23)
[2018-02-15] MEDS: CYCLOBENZAPRINE HCL 10 MG TABLET (FP) PO PRN (22:39)
[2018-02-15] MEDS: THIAMINE HCL 100 MG TABLET (FP) PO SCH (22:39)
[2018-02-16] MEDS: cloNIDine HCL 0.1 MG TABLET PO SCH (09:50)
[2018-02-16] MEDS: PRENATAL VITAMINS W/ FOLIC ACID TABLET (FP) PO SCH (09:50)
[2018-02-16] MEDS ORDERED: METHADONE HCL 10 MG TABLET (FOR DETOX USE ONLY) PO SCH (10:00)
[2018-02-16] MEDS ORDERED: diazePAM 5 MG TABLET PO SCH (10:00)
[2018-02-16] MEDS ORDERED: diazePAM 5 MG TABLET PO ONE (11:51)
[2018-02-16] MEDS ORDERED: cloNIDine HCL 0.1 MG TABLET PO PRN (11:51)
--- NOTE | 2018-02-16 12:00 | PN ---
[facility] Progress Note (SOAP) Subjective: ANXIETY,IRRITABILITY,RESTLESSNESS-CONSTANT REQUEST FOR VALIUM DESPITE EXPLANATIONS ON MEDICATION ADMINISTRATION INDICATION. Objective: 02/16/18 11:59 Vital Signs 02/16/18 02/16/18 05:58 09:10 Temperature 97.6 F 98.7 F Pulse Rate 54 L 73 Respiratory 16 18 Rate Blood Pressure 107/57 99/67 Laboratory Tests 02/12/18 02/13/18 02/13/18 22:40 07:00 07:00 WBC 5.0 RBC 4.89 Hgb 14.5 Hct 43.7 MCV 89.4 MCH 29.6 MCHC 33.1 RDW 13.9 Plt Count 130 L MPV 11.2 H D Sodium 142 Potassium 3.8 Chloride 105 Carbon Dioxide 31 Anion Gap 6 L BUN 9 Creatinine 0.7 Creat Clearance w eGFR > 60 Random Glucose 73 L Calcium 9.3 Total Bilirubin 0.6 AST 22 D ALT 25 D Alkaline Phosphatase 106 Total Protein 7.2 Albumin 3.4 Urine Color Yellow Urine Appearance Clear Urine pH 5.0 Ur Specific [place] 1.023 Urine Protein Negative Urine Glucose (UA) Negative Urine Ketones Negative Urine Blood Negative Urine Nitrite Negative Urine Bilirubin Negative Urine Urobilinogen 2.0 Ur Leukocyte Esterase Negative RPR Titer 02/13/18 07:00 WBC RBC Hgb Hct MCV MCH MCHC RDW Plt Count MPV Sodium Potassium Chloride Carbon Dioxide Anion Gap BUN Creatinine Creat Clearance w eGFR Random Glucose Calcium Total Bilirubin AST ALT Alkaline Phosphatase Total Protein Albumin Urine Color Urine Appearance Urine pH Ur Specific [place] Urine Protein Urine Glucose (UA) Urine Ketones Urine Blood Urine Nitrite Urine Bilirubin Urine Urobilinogen Ur Leukocyte Esterase RPR Titer Nonreactive Assessment: 02/16/18 11:59 WITHDRAWAL SX Plan: CONTINUE DETOX INCREASE PO FLUIDS
[2018-02-16] MEDS: THIAMINE HCL 100 MG TABLET (FP) PO SCH (22:07)
[2018-02-16] MEDS: CYCLOBENZAPRINE HCL 10 MG TABLET (FP) PO PRN (22:07)
[2018-02-17] MEDS ORDERED: METHADONE HCL 5 MG TABLET (FOR DETOX USE ONLY) PO SCH (06:00)
[2018-02-17] MEDS: CYCLOBENZAPRINE HCL 10 MG TABLET (FP) PO PRN (06:37)
[2018-02-17] MEDS: PRENATAL VITAMINS W/ FOLIC ACID TABLET (FP) PO SCH (10:18)
--- NOTE | 2018-02-17 12:46 | DS ---
[facility] Detox Discharge Summary Admission Date: 02/12/18 Discharge Date: 02/17/18 - History Present History: Alcohol Dependence, Cocaine Dependence, Opioid Dependence, Sedative Dependence Additional Comments: DETOX TAPER COMPLETED. REFERRED TO REHAB TODAY Pertinent Past History: PLEASE SEE DX BELOW - Physical Exam Results Vital Signs: Vital Signs Temperature 96.8 F L 02/17/18 09:18 Pulse Rate 85 02/17/18 09:18 Respiratory Rate 16 02/17/18 09:18 Blood Pressure 100/71 02/17/18 09:18 O2 Sat by Pulse Oximetry (%) Pertinent Admission Physical Exam Findings: WITHDRAWAL SX Laboratory Tests 02/12/18 02/13/18 02/13/18 22:40 07:00 07:00 WBC 5.0 RBC 4.89 Hgb 14.5 Hct 43.7 MCV 89.4 MCH 29.6 MCHC 33.1 RDW 13.9 Plt Count 130 L MPV 11.2 H D Sodium 142 Potassium 3.8 Chloride 105 Carbon Dioxide 31 Anion Gap 6 L BUN 9 Creatinine 0.7 Creat Clearance w eGFR > 60 Random Glucose 73 L Calcium 9.3 Total Bilirubin 0.6 AST 22 D ALT 25 D Alkaline Phosphatase 106 Total Protein 7.2 Albumin 3.4 Urine Color Yellow Urine Appearance Clear Urine pH 5.0 Ur Specific [place] 1.023 Urine Protein Negative Urine Glucose (UA) Negative Urine Ketones Negative Urine Blood Negative Urine Nitrite Negative Urine Bilirubin Negative Urine Urobilinogen 2.0 Ur Leukocyte Esterase Negative RPR Titer 02/13/18 07:00 WBC RBC Hgb Hct MCV MCH MCHC RDW Plt Count MPV Sodium Potassium Chloride Carbon Dioxide Anion Gap BUN Creatinine Creat Clearance w eGFR Random Glucose Calcium Total Bilirubin AST ALT Alkaline Phosphatase Total Protein Albumin Urine Color Urine Appearance Urine pH Ur Specific [place] Urine Protein Urine Glucose (UA) Urine Ketones Urine Blood Urine Nitrite Urine Bilirubin Urine Urobilinogen Ur Leukocyte Esterase RPR Titer Nonreactive - Treatment Hospital Course: Detox Protocol Followed, Detoxed Safely, Responded well, Discharged Condition Good, Rehab Referral Accepted Patient has Accepted a Rehab Referral to: [facility] - Medication Discharge Medications: Ambulatory Orders Albuterol Sulfate Inhaler - [Ventolin HFA Inhaler -] 2 inh IH Q4H PRN #1 inh 01/08 Salmeterol/Fluticasone [Advair 250Mcg/50Mcg -] 1 inh PO BID #1 inh 01/27/17 Sulfamethoxazole/Trimethoprim [Bactrim DS -] 1 each PO BID #10 tablet 01/27/17 - Diagnosis (1) Alcohol dependence with uncomplicated withdrawal Current Visit: Yes Status: Acute (2) Hepatitis C Current Visit: Yes Status: Chronic (3) Opioid dependence with withdrawal Current Visit: Yes Status: Acute (4) Sedative, hypnotic or anxiolytic dependence with withdrawal, uncomplicated Current Visit: Yes Status: Acute (5) Cannabis dependence, uncomplicated Current Visit: Yes Status: Chronic (6) GERD (gastroesophageal reflux disease) Current Visit: Yes Status: Chronic Qualifiers: Esophagitis presence: without esophagitis Qualified Code(s): K21.9 - Gastro -esophageal reflux disease without esophagitis (7) Nicotine dependence Current Visit: Yes Status: Chronic Qualifiers: Nicotine product type: cigarettes Substance use status: in withdrawal Qualified Code(s): F17.213 - Nicotine dependence, cigarettes, with withdrawal - AMA Did Patient Leave Against Medical Advice: No
--- NOTE | 2018-02-17 12:46 | PN ---
[facility] Progress Note (SOAP) Subjective: DETOX TAPER COMPLETED. ALERT O X 3. NAD. PT AWAITS A REHAB BED WHEN AVAILABLE TODAY. Objective: 02/17/18 12:45 Vital Signs 02/17/18 02/17/18 06:19 09:18 Temperature 97.4 F L 96.8 F L Pulse Rate 57 L 85 Respiratory 18 16 Rate Blood Pressure 108/62 100/71 Laboratory Tests 02/12/18 02/13/18 02/13/18 22:40 07:00 07:00 WBC 5.0 RBC 4.89 Hgb 14.5 Hct 43.7 MCV 89.4 MCH 29.6 MCHC 33.1 RDW 13.9 Plt Count 130 L MPV 11.2 H D Sodium 142 Potassium 3.8 Chloride 105 Carbon Dioxide 31 Anion Gap 6 L BUN 9 Creatinine 0.7 Creat Clearance w eGFR > 60 Random Glucose 73 L Calcium 9.3 Total Bilirubin 0.6 AST 22 D ALT 25 D Alkaline Phosphatase 106 Total Protein 7.2 Albumin 3.4 Urine Color Yellow Urine Appearance Clear Urine pH 5.0 Ur Specific [place] 1.023 Urine Protein Negative Urine Glucose (UA) Negative Urine Ketones Negative Urine Blood Negative Urine Nitrite Negative Urine Bilirubin Negative Urine Urobilinogen 2.0 Ur Leukocyte Esterase Negative RPR Titer 02/13/18 07:00 WBC RBC Hgb Hct MCV MCH MCHC RDW Plt Count MPV Sodium Potassium Chloride Carbon Dioxide Anion Gap BUN Creatinine Creat Clearance w eGFR Random Glucose Calcium Total Bilirubin AST ALT Alkaline Phosphatase Total Protein Albumin Urine Color Urine Appearance Urine pH Ur Specific [place] Urine Protein Urine Glucose (UA) Urine Ketones Urine Blood Urine Nitrite Urine Bilirubin Urine Urobilinogen Ur Leukocyte Esterase RPR Titer Nonreactive Assessment: 02/17/18 12:45 MEDICALLY STABLE Plan: D/C TO REHAB WHEN BED AVAILABLE TODAY.
[2018-02-17 13:32] VITALS: BP 100/55; PULSE 78; TEMP 96.6
== END 2018-02-17 15:54 | disposition other institution (70) | DRG 773 ==
LOC: YASAS 13:57 → Y3N 17:10
PROVIDERS: ADMIT Surgery; ATTEND Surgery
PROC: HZ2ZZZZ Detoxification Services for Substance Abuse Treatment (ICD-10-PCS; principal; 2018-02-12)
DX: F11.23 Opioid dependence with withdrawal (principal); F10.230 Alcohol dependence with withdrawal, uncomplicated; F13.230 Sedative, hypnotic or anxiolytic dependence with withdrawal, uncomplicated; F12.20 Cannabis dependence, uncomplicated; F17.213 Nicotine dependence, cigarettes, with withdrawal; F41.8 Other specified anxiety disorders; B18.2 Chronic viral hepatitis C; J45.909 Unspecified asthma, uncomplicated; K21.9 Gastro-esophageal reflux disease without esophagitis; R56.9 Unspecified convulsions; R63.4 Abnormal weight loss; Z68.23 Body mass index [BMI] 23.0-23.9, adult; Z59.0 Homelessness
CPT/HCPCS: 36415; 80053; 81003; 85027; 86593; 93005; 93010; J0735

== ENCOUNTER 2018-02-17 16:00 | Inpatient (IN) | payer OTHER ==
[2018-02-17] MEDS ORDERED: MAG HYDROX/AL HYDROX/SIMETH 30 ML UNIT-DOSE CUP PO PRN (20:11)
[2018-02-17] MEDS ORDERED: ACETAMINOPHEN 325 MG TABLET (FP) PO PRN (20:11)
[2018-02-17] MEDS ORDERED: IBUPROFEN 400 MG TABLET (FP) PO PRN (20:11)
[2018-02-17] MEDS ORDERED: guaiFENesin/D-METHORPHAN HB 10 ML UNIT-DOSE CUPS PO PRN (20:11)
[2018-02-17] MEDS ORDERED: MAGNESIUM HYDROX 2400MG/30ML ORAL SUSPENSION 30 ML CUP PO PRN (20:11)
[2018-02-17] MEDS ORDERED: MENTHOL/PHENOL 1 EACH UD MM PRN (20:11)
[2018-02-17] MEDS ORDERED: P-EPHED 60MG/TRIPROLIDI 2.5MG TABLET PO PRN (20:11)
[2018-02-17] MEDS ORDERED: LOPERAMIDE HCL 2 MG CAPSULE PO PRN (20:11)
[2018-02-17] MEDS ORDERED: MAGNESIUM CITRATE 300 ML BOTTLE PO PRN (20:11)
--- NOTE | 2018-02-17 20:11 | PN ---
[facility] Progress Note Note: Patient is a transfer from detox to rehab. See hx from detox.
[2018-02-17] MEDS ORDERED: NICOTINE POLACRILEX 2 MG GUM BUC PRN (20:15)
[2018-02-17] MEDS: MELATONIN 5 MG TABLETS PO PRN (22:08)
[2018-02-17] MEDS: THIAMINE HCL 100 MG TABLET (FP) PO SCH (22:08)
[2018-02-18] MEDS: PRENATAL VITAMINS W/ FOLIC ACID TABLET (FP) PO SCH (09:32)
[2018-02-18] MEDS: NICOTINE 14 MG/24 HOURS TOPICAL PATCH TD SCH (09:32)
[2018-02-18] MEDS: MELATONIN 5 MG TABLETS PO PRN (21:28)
[2018-02-18] MEDS: THIAMINE HCL 100 MG TABLET (FP) PO SCH (21:28)
[2018-02-19] MEDS: PRENATAL VITAMINS W/ FOLIC ACID TABLET (FP) PO SCH (09:42)
[2018-02-19] MEDS: NICOTINE 14 MG/24 HOURS TOPICAL PATCH TD SCH (09:42)
[2018-02-19] MEDS ORDERED: IBUPROFEN 600 MG TABLET (FP) PO PRN (09:49)
--- NOTE | 2018-02-19 09:52 | PN ---
S Progress Note Note: Vital Signs Temperature 98.3 F 02/19/18 06:52 Pulse Rate 92 H 02/19/18 06:52 Respiratory Rate 18 02/19/18 06:52 Blood Pressure 133/81 02/19/18 06:52 O2 Sat by Pulse Oximetry (%) Patient c/oi of right elbow pain and hx of tendonitis to the area. No paresthesia or decrease ROM reported. A/P Patient Aox3 no distress skin intact no erythema or lesion FULL ROM, no joint effusion or erythema - right elbow pain Plan: Ibuprofen 600 mg PRN bengay TP QD PRN increase fluids Patient advise upon d/c to follow up with PMD will continue to monitor
[2018-02-19] MEDS: METHYL SALICYLATE/MENTHOL OINT 30 GM TUBE TP SCH (10:26)
[2018-02-19] MEDS: THIAMINE HCL 100 MG TABLET (FP) PO SCH (21:10)
[2018-02-19] MEDS: MELATONIN 5 MG TABLETS PO PRN (21:10)
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
[2018-02-20] MEDS: METHYL SALICYLATE/MENTHOL OINT 30 GM TUBE TP SCH (09:09)
[2018-02-20] MEDS: NICOTINE 14 MG/24 HOURS TOPICAL PATCH TD SCH (09:09)
[2018-02-20] MEDS: PRENATAL VITAMINS W/ FOLIC ACID TABLET (FP) PO SCH (09:09)
[2018-02-20] MEDS: MELATONIN 5 MG TABLETS PO PRN (21:45)
[2018-02-20] MEDS: THIAMINE HCL 100 MG TABLET (FP) PO SCH (21:45)
[2018-02-21 06:59] VITALS: BP 128/74; PULSE 85; TEMP 97.9
== END 2018-02-21 08:40 | disposition left against medical advice (07) | DRG 770 ==
LOC: YASAS 16:00 → Y3W 16:01
PROVIDERS: ADMIT Psychiatry & Neurology Psychiatry; ATTEND Psychiatry & Neurology Psychiatry
PROC: HZ42ZZZ Group Counseling for Substance Abuse Treatment, Cognitive-Behavioral (ICD-10-PCS; principal; 2018-02-17)
DX: F11.20 Opioid dependence, uncomplicated (principal); F10.20 Alcohol dependence, uncomplicated; F12.20 Cannabis dependence, uncomplicated; F17.213 Nicotine dependence, cigarettes, with withdrawal; F31.81 Bipolar II disorder; F19.24 Other psychoactive substance dependence with psychoactive substance-induced mood disorder; F19.282 Other psychoactive substance dependence with psychoactive substance-induced sleep disorder; J45.909 Unspecified asthma, uncomplicated; K21.9 Gastro-esophageal reflux disease without esophagitis; M25.521 Pain in right elbow; Z86.69 Personal history of other diseases of the nervous system and sense organs; Z59.0 Homelessness